=== PATIENT | female | born 1940 | race Caucasian/White ===

== ENCOUNTER → 2016-11-12 | Outpatient (CLI) | payer MEDICARE, BC ==
--- NOTE | 2016-11-13 13:06 | MM ---
Reason for exam: screening (asymptomatic). Last mammogram was performed 2 years and 7 months ago. History: Patient is postmenopausal. Benign excisional biopsy of the left breast. Physical Findings: A clinical breast exam by your physician is recommended on an annual basis and results should be correlated with mammographic findings. MG 3D Screening Mammo W/Cad Bilateral CC and MLO view(s) were taken. Prior study comparison: April 20, 2014, bilateral MG screening mammo w CAD. April 20, 2013, [facility] DIGITAL LEFT BREAST MAMMOGRAM w/CAD. The breast tissue is heterogeneously dense. This may lower the sensitivity of mammography. No significant changes when compared with prior studies. ASSESSMENT: Negative, BI-RAD 1 RECOMMENDATION: Routine screening mammogram of both breasts in 1 year.
== END | disposition home or self-care (01) ==
LOC: RADMAMWWP 06:57
PROVIDERS: ATTEND Family Medicine
DX: Z12.31 Encounter for screening mammogram for malignant neoplasm of breast (principal)
CPT/HCPCS: 77063; G0202

== ENCOUNTER → 2016-12-10 | Outpatient (CLI) | payer MEDICARE, BC ==
[2016-12-10 08:58] LABS: Basophils % (A) 1 %; CH 32.5; CHCM 32.3; Eosinophils # (A) 0.2 k/uL (0-0.7); Eosinophils % (A) 4 %; HCT 36.2 % (34.0-46.0); HDW 2.23; HGB 11.9 gm/dL (11.4-16.0); Luc # (Auto) 0.11; Luc % (Auto) 2; Lymphocytes # (A) 1.6 k/uL (1.0-4.8); Lymphocytes % (A) 35 %; MCH 33.3 pg (25.0-35.0); MCV 101.1 fL (80.0-100.0); Mean Platelet Volume 7.4; Monocytes # (A) 0.2 k/uL (0-1.0); Monocytes % (A) 4 %; Neutrophils # (A) 2.5 k/uL (1.3-7.7); Neutrophils % (A) 54 %; RBC 3.58 m/uL (3.80-5.40); RDW 12.7 % (11.5-15.5); WBC 4.6 k/uL (3.8-10.6); WBC (Perox) 4.93
[2016-12-10 09:14] LABS: Calcium 10.1 mg/dL (8.4-10.2); Magnesium 1.9 mg/dL (1.6-2.3); Phosphorus 3.9 mg/dL (2.5-4.5); Potassium 4.5 mmol/L (3.5-5.1); Uric Acid 5.9 mg/dL (3.7-7.4)
[2016-12-10 14:49] LABS: Urine Creatinine 31.8 mg/dL
== END | disposition home or self-care (01) ==
LOC: LABWHC1 08:30
PROVIDERS: ATTEND Family Medicine
DX: Z00.00 Encounter for general adult medical examination without abnormal findings (principal); N18.3 Chronic kidney disease, stage 3 (moderate)
CPT/HCPCS: 36415; 80048; 82043; 82272; 82306; 82570; 83735; 83970; 84100; 84550; 85025

== ENCOUNTER → 2017-08-14 | Outpatient (CLI) | payer MEDICARE, BC ==
[2017-08-14 10:18] LABS: Basophils % (A) 0 %; Eosinophils # (A) 0.1 k/uL (0-0.7); Eosinophils % (A) 4 %; HCT 34.8 % (34.0-46.0); HGB 11.6 gm/dL (11.4-16.0); Lymphocytes # (A) 1.2 k/uL (1.0-4.8); Lymphocytes % (A) 33 %; MCH 32.7 pg (25.0-35.0); MCHC 33.2 g/dL (31.0-37.0); MCV 98.5 fL (80.0-100.0); Mean Platelet Volume 7.1; Monocytes # (A) 0.2 k/uL (0-1.0); Monocytes % (A) 5 %; Neutrophils % (A) 55 %; Platelet Count 198 k/uL (150-450); RBC 3.54 m/uL (3.80-5.40); WBC 3.7 k/uL (3.8-10.6)
[2017-08-14 10:32] LABS: Albumin 4.3 g/dL (3.5-5.0); Calcium 10.2 mg/dL (8.4-10.2); Magnesium 1.9 mg/dL (1.6-2.3); Phosphorus 4.1 mg/dL (2.5-4.5); Potassium 4.8 mmol/L (3.5-5.1); Total Bilirubin 0.5 mg/dL (0.2-1.3); Total Protein 6.8 g/dL (6.3-8.2)
[2017-08-14 17:50] LABS: Parathyroid Hormone Intact 48.6 pg/mL (14.0-72.0)
[2017-08-14 17:57] LABS: Vitamin D 25 Hydroxy 35.6 ng/mL (30.0-100.0)
== END | disposition home or self-care (01) ==
LOC: LABWHC1 09:02
PROVIDERS: ATTEND Family Medicine
DX: Z00.00 Encounter for general adult medical examination without abnormal findings (principal); N18.3 Chronic kidney disease, stage 3 (moderate)
CPT/HCPCS: 36415; 80053; 80061; 82043; 82306; 82570; 83735; 83970; 84100; 84550; 85025

== ENCOUNTER → 2017-08-25 | Outpatient (CLI) | payer MEDICARE, BC ==
[2017-08-25 12:15] LABS: ALT 58 U/L (9-52); AST 25 U/L (14-36); Alkaline Phosphatase 77 U/L (38-126); GGT 113 U/L (12-43)
[2017-08-25 18:13] LABS: Hepatitis A Antibody IgM Non-Reactive (Non-Reactive); Hepatitis B Core IgM Non-Reactive (Non-Reactive)
== END | disposition home or self-care (01) ==
LOC: LABWHC1 11:03
PROVIDERS: ATTEND Family Medicine
DX: R79.89 Other specified abnormal findings of blood chemistry (principal)
CPT/HCPCS: 36415; 80074; 82977; 84075; 84450; 84460

== ENCOUNTER → 2017-11-11 | Outpatient (CLI) | payer MEDICARE, BC ==
[2017-11-11 11:35] LABS: Basophils % (A) 1 %; Eosinophils # (A) 0.1 k/uL (0-0.7); Eosinophils % (A) 1 %; HCT 36.5 % (34.0-46.0); HGB 12.1 gm/dL (11.4-16.0); Lymphocytes % (A) 23 %; MCH 32.5 pg (25.0-35.0); MCHC 33.3 g/dL (31.0-37.0); MCV 97.6 fL (80.0-100.0); Mean Platelet Volume 7.4; Monocytes # (A) 0.2 k/uL (0-1.0); Monocytes % (A) 5 %; Neutrophils # (A) 2.8 k/uL (1.3-7.7); Neutrophils % (A) 67 %; Platelet Count 184 k/uL (150-450); RBC 3.74 m/uL (3.80-5.40); RDW 12.4 % (11.5-15.5); WBC 4.2 k/uL (3.8-10.6)
[2017-11-11 11:48] LABS: Albumin 4.1 g/dL (3.5-5.0); Calcium 9.7 mg/dL (8.4-10.2); Phosphorus 3.5 mg/dL (2.5-4.5); Potassium 4.8 mmol/L (3.5-5.1); Total Bilirubin 0.6 mg/dL (0.2-1.3); Total Protein 6.8 g/dL (6.3-8.2); Uric Acid 6.1 mg/dL (3.7-7.4)
== END | disposition home or self-care (01) ==
LOC: LABWHC1 11:00
PROVIDERS: ATTEND Family Medicine
DX: N18.3 Chronic kidney disease, stage 3 (moderate) (principal); R74.8 Abnormal levels of other serum enzymes
CPT/HCPCS: 36415; 80053; 82043; 82570; 82977; 83735; 83970; 84100; 84550; 85025

== ENCOUNTER → 2017-11-24 | Outpatient (CLI) | payer MEDICARE, BC ==
--- NOTE | 2017-11-24 17:57 | US ---
EXAMINATION TYPE: US kidneys/renal and bladder DATE OF EXAM: 11/24/2017 COMPARISON: NONE CLINICAL HISTORY: 77-year-old female N18.3 CKD. TECHNIQUE: Multiple sonographic images of the kidneys and bladder are obtained. FINDINGS: Right Kidney: 10.5 x 3.4 x 4.3 cm Left Kidney: 9.7 x 3.0 x 3.9 cm No hydronephrosis seen on either side. Right Kidney: multiple cystic areas seen, largest = 2.6cm Left Kidney: multiple cystic areas seen, largest = 1.9cm Bladder: wnl Bilateral Jets seen: yes IMPRESSION: 1. No hydronephrosis. 2. Multiple bilateral simple cysts measuring up to 2.6 cm.
== END | disposition home or self-care (01) ==
LOC: RADUSWWP 14:28
PROVIDERS: ATTEND Family Medicine
DX: N28.1 Cyst of kidney, acquired (principal); N18.3 Chronic kidney disease, stage 3 (moderate)
CPT/HCPCS: 76770

== ENCOUNTER → 2018-03-11 | Outpatient (CLI) | payer MEDICARE, BC ==
[2018-03-11 08:45] LABS: Basophils % (A) 1 %; Eosinophils # (A) 0.1 k/uL (0-0.7); Eosinophils % (A) 3 %; HCT 31.5 % (34.0-46.0); HGB 10.6 gm/dL (11.4-16.0); Lymphocytes # (A) 1.2 k/uL (1.0-4.8); Lymphocytes % (A) 34 %; MCH 32.5 pg (25.0-35.0); MCHC 33.5 g/dL (31.0-37.0); Mean Platelet Volume 6.9; Monocytes # (A) 0.2 k/uL (0-1.0); Monocytes % (A) 4 %; Neutrophils # (A) 1.9 k/uL (1.3-7.7); Neutrophils % (A) 55 %; Platelet Count 195 k/uL (150-450); RBC 3.25 m/uL (3.80-5.40); RDW 12.5 % (11.5-15.5); WBC 3.4 k/uL (3.8-10.6)
[2018-03-11 08:46] LABS: Appearance,Urine Clear (Clear); Bilirubin,Urine Negative (Negative); Blood,Urine Negative (Negative); Color,Urine Light Yellow; Glucose,Urine (UA) Negative (Negative); Ketones,Urine Negative (Negative); Leukocyte Esterase,Urine Negative (Negative); Nitrite,Urine Negative (Negative); Protein,Urine Negative (Negative); Specific Gravity,Urine 1.005 (1.001-1.035); Urobilinogen,Urine <2.0 mg/dL (<2.0)
[2018-03-11 15:34] LABS: Parathyroid Hormone Intact 54.1 pg/mL (14.0-72.0)
[2018-03-11 16:21] LABS: Iron Saturation 34.02 (12.00-45.00)
[2018-03-11 16:30] LABS: Vitamin D 25 Hydroxy 35.2 ng/mL (30.0-100.0)
[2018-03-11 17:47] LABS: Albumin 4.2 g/dL (3.80-4.90); Albumin/Globulin Ratio 2.63 (1.20-2.10); Anion Gap 6.1 mmol/L (4.00-12.00); Calcium 9.1 mg/dL (8.7-10.3); Carbon Dioxide 22.9 mmol/L (21.6-31.8); Globulin 1.6 g/dL (1.6-3.3); LDL Cholesterol,Calculated 96.8 mg/dL (0.0-131.0); Magnesium 1.8 mg/dL (1.5-2.4); Phosphorus 3.9 mg/dL (2.4-5.1); Potassium 4.1 mmol/L (3.5-5.5); Total Bilirubin 0.6 mg/dL (0.3-1.2); Total Protein 5.8 g/dL (6.2-8.2); Uric Acid 5.8 mg/dL (2.9-7.7); VLDL Calculation 23.2 mg/dL (5.00-40.00)
[2018-03-11 17:58] LABS: Creatinine,Urine Random 48.2 mg/dL
[2018-03-11 18:15] LABS: Total Protein,Urine Random <4.0 mg/dL (0.0-13.5)
== END ==
LOC: LABWHC1 07:59
PROVIDERS: ATTEND Internal Medicine Nephrology
DX: E55.9 Vitamin D deficiency, unspecified (principal); N25.81 Secondary hyperparathyroidism of renal origin; D63.1 Anemia in chronic kidney disease; I12.9 Hypertensive chronic kidney disease with stage 1 through stage 4 chronic kidney disease, or unspecified chronic kidney disease; N18.3 Chronic kidney disease, stage 3 (moderate); R94.5 Abnormal results of liver function studies
CPT/HCPCS: 36415; 80053; 80061; 81003; 82306; 82570; 82728; 83540; 83550; 83735; 83970; 84100; 84156; 84550; 85025

== ENCOUNTER → 2018-06-22 | Outpatient (CLI) | payer MEDICARE, BC ==
--- NOTE | 2018-06-23 11:06 | ECHOF ---
Referral Reason:R07.89 atypical chest pain MEASUREMENTS -------- HEIGHT: 170.2 cm WEIGHT: 56.7 kg BP: IVSd: 1.2 cm (0.6 - 1.1) LVIDd: 3.3 cm (3.9 - 5.3) LVPWd: 1.0 cm (0.6 - 1.1) IVSs: 1.6 cm LVIDs: 2.1 cm LVPWs: 1.4 cm LAESV Index (A-L): 19.06 ml/m Ao Diam: 2.4 cm (2.0 - 3.7) AV Cusp: 1.5 cm (1.5 - 2.6) LA Diam: 2.5 cm (2.7 - 3.8) MV EXCURSION: 19.436 mm (> 18.000) MV EF SLOPE: 166 mm/s (70 - 150) EPSS: 0.6 cm MV E Lucas: 0.88 m/s MV DecT: 274 ms MV A Lucas: 0.95 m/s MV E/A Ratio: 0.92 AR PHT: 646 ms RAP: 5.00 mmHg RVSP: 27.10 mmHg FINDINGS -------- Sinus rhythm. This was a technically good study. The left ventricular size is normal. There is mild concentric left ventricular hypertrophy. Overa ll left ventricular systolic function is normal with, an EF between 55 - 60 %. The right ventricle is normal in size. Normal LA size by volume 22+/-6 ml/m2. The right atrial size is normal. There is mild aortic regurgitation. The mitral valve leaflets are mildly thickened. Mild mitral regurgitation is present. Mild tricuspid regurgitation present. The right ventricular systolic pressure, as measured by Doppl er, is 27.10mmHg. There is no pulmonic regurgitation present. The aortic root size is normal. Normal inferior vena cava with normal inspiratory collapse consistent with estimated right atrial pre ssure of 5 mmHg. There is no pericardial effusion. CONCLUSIONS -------- 1. Sinus rhythm. 2. This was a technically good study. 3. The left ventricular size is normal. 4. There is mild concentric left ventricular hypertrophy. 5. Overall left ventricular systolic function is normal with, an EF between 55 - 60 %. 6. The right ventricle is normal in size. 7. Normal LA size by volume 22+/-6 ml/m2. 8. The right atrial size is normal. 9. There is mild aortic regurgitation. 10. The mitral valve leaflets are mildly thickened. 11. Mild mitral regurgitation is present. 12. Mild tricuspid regurgitation present. 13. The right ventricular systolic pressure, as measured by Doppler, is 27.10mmHg. 14. There is no pulmonic regurgitation present. 15. The aortic root size is normal. 16. Normal inferior vena cava with normal inspiratory collapse consistent with estimated right atrial pressure of 5 mmHg. 17. There is no pericardial effusion. [place]: Rayne Smith RDCS
== END ==
LOC: RADECHMAIN 11:26
PROVIDERS: ATTEND Family Medicine
DX: R07.89 Other chest pain (principal); I10 Essential (primary) hypertension
CPT/HCPCS: 93306

== ENCOUNTER → 2018-07-09 | Outpatient (CLI) | payer MEDICARE, BC ==
[2018-07-09 09:07] LABS: Appearance,Urine Clear (Clear); Bilirubin,Urine Negative (Negative); Blood,Urine Negative (Negative); Color,Urine Light Yellow; Glucose,Urine (UA) Negative (Negative); Ketones,Urine Negative (Negative); Leukocyte Esterase,Urine Trace (Negative); Mucus,Urine Rare /hpf; Nitrite,Urine Negative (Negative); Protein,Urine Negative (Negative); Specific Gravity,Urine 1.006 (1.001-1.035); Squamous Epithelial Cell,Urine <1 /hpf (0-4); Urobilinogen,Urine <2.0 mg/dL (<2.0); WBC,Urine 2 /hpf (0-5)
[2018-07-09 09:17] LABS: Basophils % (A) 1 %; Eosinophils # (A) 0.1 k/uL (0-0.7); Eosinophils % (A) 2 %; HCT 31.5 % (34.0-46.0); HGB 10.5 gm/dL (11.4-16.0); Lymphocytes # (A) 1.1 k/uL (1.0-4.8); Lymphocytes % (A) 36 %; MCH 32.8 pg (25.0-35.0); MCHC 33.2 g/dL (31.0-37.0); MCV 98.7 fL (80.0-100.0); Mean Platelet Volume 6.7; Monocytes # (A) 0.2 k/uL (0-1.0); Monocytes % (A) 7 %; Neutrophils # (A) 1.6 k/uL (1.3-7.7); Neutrophils % (A) 52 %; Platelet Count 221 k/uL (150-450); RBC 3.19 m/uL (3.80-5.40); RDW 12.3 % (11.5-15.5); WBC 3.1 k/uL (3.8-10.6)
[2018-07-09 16:42] LABS: Iron Saturation 35.37 (12.00-45.00)
[2018-07-09 16:49] LABS: Vitamin D 25 Hydroxy 50.1 ng/mL (30.0-100.0)
[2018-07-09 16:53] LABS: Albumin 4.3 g/dL (3.80-4.90); Anion Gap 9.5 mmol/L (4.00-12.00); Calcium 9.6 mg/dL (8.7-10.3); Carbon Dioxide 21.5 mmol/L (21.6-31.8); Phosphorus 3.8 mg/dL (2.4-5.1); Potassium 4.3 mmol/L (3.5-5.5); Uric Acid 5.6 mg/dL (2.9-7.7)
[2018-07-09 17:38] LABS: Parathyroid Hormone Intact 49.5 pg/mL (14.0-72.0)
[2018-07-09 18:03] LABS: Creatinine,Urine Random 26.4 mg/dL
[2018-07-09 19:04] LABS: Total Protein,Urine Random <4.0 mg/dL (0.0-13.5)
== END | disposition home or self-care (01) ==
LOC: LABWHC1 08:18
PROVIDERS: ATTEND Internal Medicine Nephrology
DX: E55.9 Vitamin D deficiency, unspecified (principal); E21.3 Hyperparathyroidism, unspecified; M10.9 Gout, unspecified; N39.0 Urinary tract infection, site not specified; D63.1 Anemia in chronic kidney disease; N18.3 Chronic kidney disease, stage 3 (moderate); R80.9 Proteinuria, unspecified
CPT/HCPCS: 36415; 80048; 81001; 82040; 82306; 82570; 82728; 83540; 83550; 83735; 83970; 84100; 84156; 84550; 85025

== ENCOUNTER → 2018-10-16 | Outpatient (CLI) | payer MEDICARE, BC ==
--- NOTE | 2018-10-19 10:05 | MM ---
Reason for exam: screening (asymptomatic). Last mammogram was performed 1 year and 11 months ago. History: Patient is postmenopausal. Benign excisional biopsy of the left breast. Physical Findings: A clinical breast exam by your physician is recommended on an annual basis and results should be correlated with mammographic findings. MG 3D Screening Mammo W/Cad Bilateral CC and MLO view(s) were taken. XCCL view(s) were taken of the right breast. Prior study comparison: November 12, 2016, bilateral MG 3d screening mammo w/cad. April 20, 2014, bilateral MG screening mammo w CAD. There are scattered fibroglandular densities. There is no discrete abnormality. No significant changes when compared with prior studies. ASSESSMENT: Negative, BI-RAD 1 RECOMMENDATION: Routine screening mammogram of both breasts in 1 year.
== END | disposition home or self-care (01) ==
LOC: RADMAMWWP 11:07
PROVIDERS: ATTEND Family Medicine
DX: Z12.31 Encounter for screening mammogram for malignant neoplasm of breast (principal)
CPT/HCPCS: 77063; 77067

== ENCOUNTER → 2018-11-12 | Outpatient (CLI) | payer MEDICARE, BC ==
[2018-11-12 10:00] LABS: Basophils % (A) 1 %; Eosinophils # (A) 0.1 k/uL (0-0.7); Eosinophils % (A) 3 %; HCT 32.5 % (34.0-46.0); HGB 10.9 gm/dL (11.4-16.0); Lymphocytes # (A) 1.6 k/uL (1.0-4.8); Lymphocytes % (A) 38 %; MCH 32.7 pg (25.0-35.0); MCHC 33.7 g/dL (31.0-37.0); MCV 97.2 fL (80.0-100.0); Mean Platelet Volume 6.7; Monocytes # (A) 0.2 k/uL (0-1.0); Monocytes % (A) 5 %; Neutrophils # (A) 2.2 k/uL (1.3-7.7); Neutrophils % (A) 51 %; Platelet Count 225 k/uL (150-450); RBC 3.34 m/uL (3.80-5.40); RDW 12.4 % (11.5-15.5); WBC 4.3 k/uL (3.8-10.6)
[2018-11-12 10:14] LABS: Appearance,Urine Clear (Clear); Bacteria,Urine Rare /hpf; Bilirubin,Urine Negative (Negative); Blood,Urine Negative (Negative); Color,Urine Yellow; Glucose,Urine (UA) Negative (Negative); Ketones,Urine Negative (Negative); Leukocyte Esterase,Urine Moderate (Negative); Mucus,Urine Rare /hpf; Nitrite,Urine Negative (Negative); PH, Urine 5.5 (5.0-8.0); Protein,Urine Negative (Negative); RBC,Urine 1 /hpf (0-5); Specific Gravity,Urine 1.009 (1.001-1.035); Squamous Epithelial Cell,Urine 1 /hpf (0-4); Urobilinogen,Urine <2.0 mg/dL (<2.0); WBC,Urine 2 /hpf (0-5)
[2018-11-12 16:04] LABS: Iron Saturation 32.14 (12.00-45.00)
[2018-11-12 16:21] LABS: African American GFR (CKD) 38.3 (60.0-200.0); Albumin 4.2 g/dL (3.80-4.90); Anion Gap 10.9 mmol/L (4.00-12.00); BUN/Creat Ratio 18.67 Ratio (12.00-20.00); Calcium 9.7 mg/dL (8.7-10.3); Carbon Dioxide 22.1 mmol/L (21.6-31.8); Phosphorus 4.1 mg/dL (2.4-5.1); Potassium 4.2 mmol/L (3.5-5.5); Uric Acid 5.8 mg/dL (2.9-7.7)
[2018-11-12 18:54] LABS: Total Protein,Urine Random 7.4 mg/dL (0.0-13.5)
== END | disposition home or self-care (01) ==
LOC: LABWHC1 09:18
PROVIDERS: ATTEND Internal Medicine Nephrology
DX: N25.81 Secondary hyperparathyroidism of renal origin (principal); E55.9 Vitamin D deficiency, unspecified; M10.9 Gout, unspecified; N39.0 Urinary tract infection, site not specified; D63.1 Anemia in chronic kidney disease; N18.3 Chronic kidney disease, stage 3 (moderate)
CPT/HCPCS: 36415; 80048; 81001; 82040; 82306; 82570; 82728; 83540; 83550; 83735; 83970; 84100; 84156; 84550; 85025

== ENCOUNTER → 2019-02-05 | Outpatient (CLI) | payer MEDICARE, BC ==
[2019-02-05 12:47] LABS: Basophils % (A) 1 %; Eosinophils # (A) 0.1 k/uL (0-0.7); Eosinophils % (A) 2 %; HCT 30.2 % (34.0-46.0); Lymphocytes # (A) 1.2 k/uL (1.0-4.8); Lymphocytes % (A) 27 %; MCH 32.5 pg (25.0-35.0); MCHC 33.1 g/dL (31.0-37.0); Mean Platelet Volume 6.2; Monocytes # (A) 0.2 k/uL (0-1.0); Monocytes % (A) 5 %; Neutrophils # (A) 2.6 k/uL (1.3-7.7); Neutrophils % (A) 62 %; Platelet Count 197 k/uL (150-450); RBC 3.08 m/uL (3.80-5.40); RDW 12.6 % (11.5-15.5); WBC 4.2 k/uL (3.8-10.6)
[2019-02-05 18:51] LABS: Albumin 4.1 g/dL (3.80-4.90); Albumin/Globulin Ratio 2.16 (1.60-3.17); Anion Gap 8.9 mmol/L (4.00-12.00); BUN/Creat Ratio 16.5 Ratio (12.00-20.00); Calcium 9.4 mg/dL (8.7-10.3); Carbon Dioxide 25.1 mmol/L (21.6-31.8); Globulin 1.9 g/dL (1.6-3.3); Non-African American GFR(CKD) 23.3 (60.0-200.0); Potassium 4.4 mmol/L (3.5-5.5); Total Bilirubin 0.5 mg/dL (0.2-1.2)
== END ==
LOC: LABWHC1 12:05
PROVIDERS: ATTEND Family Medicine
DX: N18.3 Chronic kidney disease, stage 3 (moderate) (principal); R19.7 Diarrhea, unspecified
CPT/HCPCS: 36415; 80053; 82150; 83690; 84443; 85025; 87045; 87046; 87328; 87329

== ENCOUNTER → 2019-04-05 | Outpatient (CLI) | payer MEDICARE, BC ==
[2019-04-05 21:01] LABS: Gliadin AB IgA, Deaminated NEGATIVE (NEGATIVE); Gliadin AB IgA, Unit <0.2 U/mL; Gliadin AB IgG, Deaminated NEGATIVE (NEGATIVE)
== END | disposition home or self-care (01) ==
LOC: LABWHC1 12:35
PROVIDERS: ATTEND Internal Medicine Gastroenterology
DX: K52.9 Noninfective gastroenteritis and colitis, unspecified (principal)
CPT/HCPCS: 36415; 83516; 85652; 86140

== ENCOUNTER → 2019-07-14 | Outpatient (CLI) | payer MEDICARE, BC ==
[2019-07-14 11:43] LABS: Basophils % (A) 0 %; Eosinophils # (A) 0.1 k/uL (0-0.7); Eosinophils % (A) 3 %; HCT 30.6 % (34.0-46.0); HGB 10.2 gm/dL (11.4-16.0); Lymphocytes # (A) 0.9 k/uL (1.0-4.8); Lymphocytes % (A) 21 %; MCHC 33.2 g/dL (31.0-37.0); MCV 99.2 fL (80.0-100.0); Mean Platelet Volume 7.6; Monocytes # (A) 0.2 k/uL (0-1.0); Monocytes % (A) 5 %; Neutrophils # (A) 2.8 k/uL (1.3-7.7); Neutrophils % (A) 66 %; Platelet Count 182 k/uL (150-450); RBC 3.08 m/uL (3.80-5.40); RDW 12.3 % (11.5-15.5); WBC 4.2 k/uL (3.8-10.6)
[2019-07-14 11:45] LABS: Appearance,Urine Cloudy (Clear); Bacteria,Urine Rare /hpf; Bilirubin,Urine Negative (Negative); Blood,Urine Negative (Negative); Budding Yeast,Urine Rare /hpf; Color,Urine Light Yellow; Glucose,Urine (UA) Negative (Negative); Hyaline Casts,Urine 1 /lpf (0-2); Ketones,Urine Negative (Negative); Leukocyte Esterase,Urine Large (Negative); Mucus,Urine Rare /hpf; Nitrite,Urine Negative (Negative); Protein,Urine Negative (Negative); RBC,Urine 2 /hpf (0-5); Specific Gravity,Urine 1.011 (1.001-1.035); Squamous Epithelial Cell,Urine 3 /hpf (0-4); Urobilinogen,Urine <2.0 mg/dL (<2.0); WBC,Urine 3 /hpf (0-5)
[2019-07-14 17:04] LABS: Creatinine,Urine Random 78.2 mg/dL; Total Protein,Urine Random 9.5 mg/dL (0.0-13.5)
[2019-07-14 18:54] LABS: % Iron Saturation 21.53 (12.00-45.00); African American GFR (CKD) 32.9 (60.0-200.0); Albumin 4.1 g/dL (3.80-4.90); Anion Gap 10.8 mmol/L (4.00-12.00); BUN/Creat Ratio 15.88 Ratio (12.00-20.00); Calcium 9.4 mg/dL (8.7-10.3); Carbon Dioxide 23.2 mmol/L (21.6-31.8); Magnesium 1.8 mg/dL (1.5-2.4); Non-African American GFR(CKD) 28.4 (60.0-200.0); Phosphorus 3.8 mg/dL (2.4-5.1); Potassium 4.1 mmol/L (3.5-5.5); Uric Acid 5.5 mg/dL (2.9-7.7)
[2019-07-14 19:03] LABS: Ferritin 353.8 ng/mL (10.0-291.0)
== END | disposition home or self-care (01) ==
LOC: LABWHC1 10:48
PROVIDERS: ATTEND Internal Medicine Nephrology
DX: N18.3 Chronic kidney disease, stage 3 (moderate) (principal); E55.9 Vitamin D deficiency, unspecified; N25.81 Secondary hyperparathyroidism of renal origin; M10.9 Gout, unspecified; N39.0 Urinary tract infection, site not specified
CPT/HCPCS: 36415; 80048; 81001; 82040; 82306; 82570; 82728; 83540; 83550; 83735; 83970; 84100; 84156; 84550; 85025

== ENCOUNTER → 2019-08-19 | Outpatient (CLI) | payer MEDICARE, BC ==
--- NOTE | 2019-08-19 15:37 | US ---
EXAMINATION TYPE: US kidneys/renal and bladder DATE OF EXAM: 08/19/2019 COMPARISON: NONE CLINICAL HISTORY: N18.4 stage 4 kidney failure. CKD stage 4 EXAM MEASUREMENTS: Right Kidney: 9.9 x 3.5 cm Left Kidney: 9.3 x 4.7 x 3.6 cm Right Kidney: multiple cysts seen largest 2.1 x 1.9 x 1.9 cm. Left Kidney: multiple cysts seen largest 2.5 x 2.2 x 2.2 cm. Bladder: Anechoic Bilateral Jets seen: Yes IMPRESSION: Bilateral renal cysts
== END | disposition home or self-care (01) ==
LOC: RADUSWWP 13:25
PROVIDERS: ATTEND Internal Medicine Geriatric Medicine
DX: N28.1 Cyst of kidney, acquired (principal); N18.4 Chronic kidney disease, stage 4 (severe)
CPT/HCPCS: 76770

== ENCOUNTER → 2019-10-29 | Outpatient (CLI) | payer MEDICARE, BC ==
[2019-10-29 11:08] LABS: Appearance,Urine Clear (Clear); Bacteria,Urine Rare /hpf; Bilirubin,Urine Negative (Negative); Blood,Urine Negative (Negative); Color,Urine Yellow; Glucose,Urine (UA) Negative (Negative); Ketones,Urine Negative (Negative); Leukocyte Esterase,Urine Trace (Negative); Mucus,Urine Rare /hpf; Nitrite,Urine Negative (Negative); PH, Urine 5.5 (5.0-8.0); Protein,Urine Negative (Negative); RBC,Urine <1 /hpf (0-5); Specific Gravity,Urine 1.012 (1.001-1.035); Squamous Epithelial Cell,Urine <1 /hpf (0-4); Urobilinogen,Urine <2.0 mg/dL (<2.0); WBC,Urine 1 /hpf (0-5)
[2019-10-29 11:21] LABS: Basophils % (A) 0 %; Eosinophils # (A) 0.1 k/uL (0-0.7); Eosinophils % (A) 2 %; HCT 31.4 % (34.0-46.0); HGB 10.1 gm/dL (11.4-16.0); Lymphocytes % (A) 21 %; MCH 31.7 pg (25.0-35.0); MCHC 32.2 g/dL (31.0-37.0); MCV 98.3 fL (80.0-100.0); Mean Platelet Volume 7.6; Monocytes # (A) 0.2 k/uL (0-1.0); Monocytes % (A) 5 %; Neutrophils # (A) 3.4 k/uL (1.3-7.7); Neutrophils % (A) 70 %; Platelet Count 214 k/uL (150-450); RBC 3.19 m/uL (3.80-5.40); WBC 4.8 k/uL (3.8-10.6)
[2019-10-29 11:23] LABS: Protein/Creatinine Ratio,Urine 0.11
[2019-10-29 17:29] LABS: % Iron Saturation 23.65 (12.00-45.00); African American GFR (CKD) 28.6 (60.0-200.0); Albumin 4.2 g/dL (3.80-4.90); Anion Gap 8.7 mmol/L (4.00-12.00); BUN/Creat Ratio 17.89 Ratio (12.00-20.00); Calcium 9.8 mg/dL (8.7-10.3); Carbon Dioxide 23.3 mmol/L (21.6-31.8); Magnesium 1.8 mg/dL (1.5-2.4); Non-African American GFR(CKD) 24.6 (60.0-200.0); Phosphorus 4.1 mg/dL (2.4-5.1); Potassium 4.3 mmol/L (3.5-5.5); Uric Acid 6.4 mg/dL (2.9-7.7)
[2019-10-29 17:37] LABS: Ferritin 291.7 ng/mL (10.0-291.0)
== END | disposition home or self-care (01) ==
LOC: LABWHC1 09:17
PROVIDERS: ATTEND Internal Medicine Nephrology
DX: N39.0 Urinary tract infection, site not specified (principal); E55.9 Vitamin D deficiency, unspecified; N25.81 Secondary hyperparathyroidism of renal origin; M10.9 Gout, unspecified; D63.1 Anemia in chronic kidney disease; N18.3 Chronic kidney disease, stage 3 (moderate); R80.9 Proteinuria, unspecified
CPT/HCPCS: 36415; 80048; 81001; 82040; 82306; 82570; 82728; 83540; 83550; 83735; 83970; 84100; 84156; 84550; 85025

== ENCOUNTER → 2019-12-20 | Outpatient (CLI) | payer MEDICARE, BC ==
[2019-12-20 14:15] LABS: Basophils % (A) 1 %; Eosinophils # (A) 0.1 k/uL (0-0.7); Eosinophils % (A) 2 %; HCT 32.2 % (34.0-46.0); HGB 10.7 gm/dL (11.4-16.0); Lymphocytes # (A) 1.1 k/uL (1.0-4.8); Lymphocytes % (A) 23 %; MCH 33.3 pg (25.0-35.0); MCHC 33.2 g/dL (31.0-37.0); MCV 100.4 fL (80.0-100.0); Mean Platelet Volume 6.9; Monocytes # (A) 0.3 k/uL (0-1.0); Monocytes % (A) 5 %; Neutrophils # (A) 3.2 k/uL (1.3-7.7); Neutrophils % (A) 67 %; Platelet Count 225 k/uL (150-450); RBC 3.21 m/uL (3.80-5.40); RDW 12.1 % (11.5-15.5); WBC 4.8 k/uL (3.8-10.6)
[2019-12-20 21:16] LABS: % Iron Saturation 25.44 (12.00-45.00); African American GFR (CKD) 28.6 (60.0-200.0); Anion Gap 8.8 mmol/L (4.00-12.00); BUN/Creat Ratio 15.26 Ratio (12.00-20.00); Calcium 9.5 mg/dL (8.7-10.3); Carbon Dioxide 24.2 mmol/L (21.6-31.8); Non-African American GFR(CKD) 24.6 (60.0-200.0); Phosphorus 3.5 mg/dL (2.4-5.1); Potassium 4.9 mmol/L (3.5-5.5)
== END | disposition home or self-care (01) ==
LOC: LABWHC1 12:56
PROVIDERS: ATTEND Internal Medicine Nephrology
DX: N18.30 Chronic kidney disease, stage 3 unspecified (principal); D63.1 Anemia in chronic kidney disease
CPT/HCPCS: 36415; 80048; 82728; 83540; 83550; 84100; 85025

== ENCOUNTER → 2020-05-02 | Outpatient (CLI) | payer MEDICARE, BC ==
[2020-05-02 14:30] LABS: Appearance,Urine Clear (Clear); Bilirubin,Urine Negative (Negative); Blood,Urine Negative (Negative); Color,Urine Light Yellow; Glucose,Urine (UA) Negative (Negative); Ketones,Urine Negative (Negative); Leukocyte Esterase,Urine Negative (Negative); Nitrite,Urine Negative (Negative); Protein,Urine Negative (Negative); Specific Gravity,Urine 1.008 (1.001-1.035); Urobilinogen,Urine <2.0 mg/dL (<2.0)
[2020-05-02 14:49] LABS: Creatinine,Urine Random 59.5 mg/dL; Protein/Creatinine Ratio,Urine 0.235
[2020-05-02 19:16] LABS: Basophils # (A) 0.03 X 10*3/uL (0.00-0.10); Basophils % (A) 0.5 %; Eosinophils # (A) 0.07 X 10*3/uL (0.04-0.35); Eosinophils % (A) 1.2 %; HCT 31.7 % (37.2-46.3); HGB 10.6 g/dL (12.0-15.0); Lymphocytes # (A) 1.29 X 10*3/uL (0.90-5.00); Lymphocytes % (A) 22.8 %; MCH 33.2 pg (27.0-32.0); MCHC 33.4 g/dL (32.0-37.0); MCV 99.4 fL (80.0-97.0); Mean Platelet Volume 10.5 fL (9.5-12.2); Monocytes # (A) 0.35 X 10*3/uL (0.20-1.00); Monocytes % (A) 6.2 %; Neutrophils # (A) 3.91 X 10*3/uL (1.80-7.70); Neutrophils % (A) 68.9 %; Platelet Count 211 X 10*3/uL (140-440); RBC 3.19 X 10*6/uL (4.10-5.20); RDW 12.6 % (11.5-14.5); WBC 5.67 X 10*3/uL (4.50-10.00)
[2020-05-02 20:47] LABS: % Iron Saturation 25.42 (12.00-45.00); African American GFR (CKD) 22.7 (60.0-200.0); Albumin 4.5 g/dL (3.80-4.90); Anion Gap 9.4 mmol/L (4.00-12.00); BUN/Creat Ratio 16.96 Ratio (12.00-20.00); Calcium 9.5 mg/dL (8.7-10.3); Carbon Dioxide 26.6 mmol/L (21.6-31.8); Magnesium 2.2 mg/dL (1.5-2.4); Non-African American GFR(CKD) 19.6 (60.0-200.0); Phosphorus 3.4 mg/dL (2.4-5.1); Potassium 4.5 mmol/L (3.5-5.5); Uric Acid 5.7 mg/dL (2.9-7.7)
[2020-05-02 21:53] LABS: Ferritin 343.5 ng/mL (10.0-291.0)
== END | disposition home or self-care (01) ==
LOC: LABWHC1 13:45
PROVIDERS: ATTEND Internal Medicine Nephrology
DX: E55.9 Vitamin D deficiency, unspecified (principal); N25.81 Secondary hyperparathyroidism of renal origin; M10.9 Gout, unspecified; N39.0 Urinary tract infection, site not specified; N18.4 Chronic kidney disease, stage 4 (severe); D63.1 Anemia in chronic kidney disease; R80.9 Proteinuria, unspecified
CPT/HCPCS: 36415; 80048; 81003; 82040; 82306; 82570; 82728; 83540; 83550; 83735; 83970; 84100; 84156; 84550; 85025

== ENCOUNTER → 2020-05-24 | Outpatient (CLI) | payer MEDICARE, BC ==
[2020-05-25 02:00] LABS: African American GFR (CKD) 22.7 (60.0-200.0); Anion Gap 12.4 mmol/L (4.00-12.00); BUN/Creat Ratio 14.35 Ratio (12.00-20.00); Calcium 10.3 mg/dL (8.7-10.3); Carbon Dioxide 21.6 mmol/L (21.6-31.8); Non-African American GFR(CKD) 19.6 (60.0-200.0); Potassium 4.5 mmol/L (3.5-5.5)
== END | disposition home or self-care (01) ==
LOC: LABWHC1 12:09
PROVIDERS: ATTEND Nurse Practitioner Family
DX: N18.4 Chronic kidney disease, stage 4 (severe) (principal)
CPT/HCPCS: 36415; 80048

== ENCOUNTER → 2020-08-17 | Outpatient (CLI) | payer MEDICARE, BC ==
[2020-08-17 11:37] LABS: Creatinine,Urine Random 29.4 mg/dL; Protein/Creatinine Ratio,Urine 0.476
[2020-08-17 11:40] LABS: Appearance,Urine Clear (Clear); Bilirubin,Urine Negative (Negative); Blood,Urine Negative (Negative); Color,Urine Light Yellow; Glucose,Urine (UA) Negative (Negative); Ketones,Urine Negative (Negative); Leukocyte Esterase,Urine Negative (Negative); Nitrite,Urine Negative (Negative); PH, Urine 6.5 (5.0-8.0); Protein,Urine Negative (Negative); Specific Gravity,Urine 1.005 (1.001-1.035); Urobilinogen,Urine <2.0 mg/dL (<2.0)
[2020-08-17 15:57] LABS: Basophils # (A) 0.03 X 10*3/uL (0.00-0.10); Basophils % (A) 0.6 %; Eosinophils # (A) 0.17 X 10*3/uL (0.04-0.35); Eosinophils % (A) 3.4 %; HCT 30.4 % (37.2-46.3); HGB 9.9 g/dL (12.0-15.0); Lymphocytes # (A) 1.41 X 10*3/uL (0.90-5.00); Lymphocytes % (A) 28.2 %; MCHC 32.6 g/dL (32.0-37.0); MCV 98.4 fL (80.0-97.0); Mean Platelet Volume 10.1 fL (9.5-12.2); Monocytes # (A) 0.44 X 10*3/uL (0.20-1.00); Monocytes % (A) 8.8 %; Neutrophils # (A) 2.93 X 10*3/uL (1.80-7.70); Neutrophils % (A) 58.6 %; Platelet Count 188 X 10*3/uL (140-440); RBC 3.09 X 10*6/uL (4.10-5.20); RDW 12.1 % (11.5-14.5)
[2020-08-17 18:35] LABS: % Iron Saturation 28.97 (12.00-45.00); African American GFR (CKD) 26.8 (60.0-200.0); Anion Gap 8.9 mmol/L (4.00-12.00); Calcium 10.2 mg/dL (8.7-10.3); Carbon Dioxide 22.1 mmol/L (21.6-31.8); Magnesium 1.9 mg/dL (1.5-2.4); Non-African American GFR(CKD) 23.2 (60.0-200.0); Phosphorus 4.2 mg/dL (2.4-5.1); Potassium 4.4 mmol/L (3.5-5.5); Uric Acid 5.1 mg/dL (2.9-7.7)
[2020-08-17 18:42] LABS: Ferritin 288.2 ng/mL (10.0-291.0)
== END | disposition home or self-care (01) ==
LOC: LABWHC1 09:29
PROVIDERS: ATTEND Nurse Practitioner Family
DX: N18.4 Chronic kidney disease, stage 4 (severe) (principal); E55.9 Vitamin D deficiency, unspecified; E21.3 Hyperparathyroidism, unspecified; M10.9 Gout, unspecified; N39.0 Urinary tract infection, site not specified; D64.9 Anemia, unspecified
CPT/HCPCS: 36415; 80048; 81003; 82040; 82306; 82570; 82728; 83540; 83550; 83735; 83970; 84100; 84156; 84550; 85025

== ENCOUNTER → 2020-10-04 | Outpatient (CLI) | payer MEDICARE, BC ==
[2020-10-04 20:04] LABS: Basophils # (A) 0.02 X 10*3/uL (0.00-0.10); Basophils % (A) 0.3 %; Eosinophils % (A) 3.4 %; HCT 31.5 % (37.2-46.3); HGB 10.2 g/dL (12.0-15.0); Lymphocytes # (A) 1.07 X 10*3/uL (0.90-5.00); Lymphocytes % (A) 18.4 %; MCH 32.1 pg (27.0-32.0); MCHC 32.4 g/dL (32.0-37.0); MCV 99.1 fL (80.0-97.0); Mean Platelet Volume 10.2 fL (9.5-12.2); Monocytes # (A) 0.45 X 10*3/uL (0.20-1.00); Monocytes % (A) 7.7 %; Neutrophils # (A) 4.07 X 10*3/uL (1.80-7.70); Neutrophils % (A) 69.9 %; Platelet Count 192 X 10*3/uL (140-440); RBC 3.18 X 10*6/uL (4.10-5.20); RDW 12.6 % (11.5-14.5); WBC 5.83 X 10*3/uL (4.50-10.00)
== END | disposition home or self-care (01) ==
LOC: LABWHC1 11:36
PROVIDERS: ATTEND Nurse Practitioner Family
DX: D64.9 Anemia, unspecified (principal)
CPT/HCPCS: 36415; 85025

== ENCOUNTER → 2020-12-01 | Outpatient (CLI) | payer MEDICARE, BC ==
[2020-12-01 14:19] LABS: Appearance,Urine Clear (Clear); Bacteria,Urine Rare /hpf; Bilirubin,Urine Negative (Negative); Blood,Urine Negative (Negative); Color,Urine Yellow; Glucose,Urine (UA) Negative (Negative); Ketones,Urine Negative (Negative); Leukocyte Esterase,Urine Large (Negative); Mucus,Urine Rare /hpf; Nitrite,Urine Negative (Negative); Protein,Urine Negative (Negative); RBC,Urine 1 /hpf (0-5); Specific Gravity,Urine 1.012 (1.001-1.035); Squamous Epithelial Cell,Urine 1 /hpf (0-4); Urobilinogen,Urine <2.0 mg/dL (<2.0); WBC,Urine 2 /hpf (0-5)
[2020-12-01 19:08] LABS: Basophils # (A) 0.04 X 10*3/uL (0.00-0.10); Basophils % (A) 0.7 %; Eosinophils % (A) 1.8 %; HCT 31.1 % (37.2-46.3); HGB 10.2 g/dL (12.0-15.0); Lymphocytes % (A) 23.3 %; MCHC 32.8 g/dL (32.0-37.0); MCV 97.5 fL (80.0-97.0); Mean Platelet Volume 9.9 fL (9.5-12.2); Monocytes # (A) 0.41 X 10*3/uL (0.20-1.00); Monocytes % (A) 7.3 %; Neutrophils # (A) 3.73 X 10*3/uL (1.80-7.70); Neutrophils % (A) 66.7 %; Platelet Count 209 X 10*3/uL (140-440); RBC 3.19 X 10*6/uL (4.10-5.20); RDW 12.7 % (11.5-14.5); WBC 5.59 X 10*3/uL (4.50-10.00)
[2020-12-01 22:46] LABS: % Iron Saturation 30.2 (12.00-45.00); African American GFR (CKD) 25.1 (60.0-200.0); Albumin 4.5 g/dL (3.80-4.90); Anion Gap 9.8 mmol/L (4.00-12.00); BUN/Creat Ratio 14.76 Ratio (12.00-20.00); Calcium 9.4 mg/dL (8.7-10.3); Carbon Dioxide 22.2 mmol/L (21.6-31.8); Magnesium 2.1 mg/dL (1.5-2.4); Non-African American GFR(CKD) 21.7 (60.0-200.0); Phosphorus 3.4 mg/dL (2.4-5.1); Uric Acid 5.2 mg/dL (2.9-7.7)
[2020-12-02 00:19] LABS: Ferritin 390.3 ng/mL (10.0-291.0)
[2020-12-02 00:30] LABS: Urine Creatinine 102.9 mg/dL
== END | disposition home or self-care (01) ==
LOC: LABWHC1 11:42
PROVIDERS: ATTEND Nurse Practitioner Family
DX: D64.9 Anemia, unspecified (principal); N18.4 Chronic kidney disease, stage 4 (severe); E55.9 Vitamin D deficiency, unspecified; N25.81 Secondary hyperparathyroidism of renal origin; M10.9 Gout, unspecified; N39.0 Urinary tract infection, site not specified; R80.9 Proteinuria, unspecified
CPT/HCPCS: 36415; 80048; 81001; 82040; 82043; 82306; 82570; 82728; 83540; 83550; 83735; 83970; 84100; 84550; 85025

== ENCOUNTER → 2021-03-20 | Outpatient (CLI) | payer MEDICARE, BC ==
--- NOTE | 2021-03-20 16:06 | XR ---
EXAMINATION TYPE: XR chest 2V DATE OF EXAM: 03/20/2021 COMPARISON: None HISTORY: 80-year-old female acute cough, R05.1 TECHNIQUE: Frontal and lateral views FINDINGS: Heart normal size. Aorta and artery vasculature within normal limits. Right apical calcification and pleural parenchymal thickening, right greater than left. Partial silhouetting along the left heart ma rgin. Hyperinflation. Strandy atelectasis in the lower lungs. No pleural effusion. IMPRESSION: 1. COPD. Some silhouetting of the left heart margin could represent some adjacent inferior lingular a telectasis versus early infiltrate/pneumonia. Clinically correlate. 2. Biapical, right greater than left, pleuroparenchymal opacities, probably scarring. 8-10 week radio graphic follow-up recommended to reassess.
== END | disposition home or self-care (01) ==
LOC: RADXRMAIN 15:35
PROVIDERS: ATTEND Nurse Practitioner Gerontology
DX: J44.9 Chronic obstructive pulmonary disease, unspecified (principal); R05.1 Acute cough
CPT/HCPCS: 71046

== ENCOUNTER → 2021-03-29 | Outpatient (CLI) | payer MEDICARE, BC ==
--- NOTE | 2021-03-29 17:40 | CT ---
EXAMINATION TYPE: CT chest wo con CT DLP: 371 mGycm, Automated exposure control for dose reduction was used. DATE OF EXAM: 03/29/2021 4:58 PM COMPARISON: Chest radiograph from 03/20/2021, renal ultrasound 11/24/2017 CLINICAL INDICATION:Female, 80 years old with history of J47.9 Bronchiectasis, Bronchiectasis. Pt sta donna she had pneumonia several months ago and this is a follow-up TECHNIQUE: Multiple axial images were obtained through the chest without IV contrast. Lack of IV or o ral contrast limits evaluation of solid and hollow organ viscera. FINDINGS: LUNGS/ PLEURA: Lobular emphysema changes are seen throughout the lungs. There is scattered pleural ca lcification present within the lateral aspects of the upper lobes. Streaky subsegmental atelectasis/s carring is seen within the upper lobes and middle lobe. Bilateral Bochdalek hernias containing fat. G roundglass opacity within the right upper lobe in 11 mm best appreciated on series 7 image 24. There is also right lower lobe nodularity on series 4 image 35. AIRWAY: Patent and unremarkable. HEART: Size within normal limits. MEDIASTINUM: No gross evidence of adenopathy. VASCULATURE: No aortic aneurysm. Scattered atherosclerotic calcifications are seen in the arterial v asculature. MUSCULOSKELETAL: No acute osseous abnormalities with the level degenerative disc disease changes thro ughout the spine. Is mild T12 superior endplate compression noted. SOFT TISSUES/LYMPH NODES: Unremarkable. LOWER NECK: No significant findings. UPPER ABDOMEN: Left renal hypodensities likely representing cysts however lack of IV contrast limits evaluation. This one of the cyst was seen on prior ultrasound 11/24/2017. Additionally there is a left nonobstructing 6 mm calculus. Small splenule is present. IMPRESSION: 1. No evidence of focal airspace consolidation, pneumothorax or pleural effusion. 2. Streaky subsegmental atelectasis/scarring changes at the upper lobes and middle lobe which may rep resent sequela of prior infection. 3. Groundglass opacity within the right upper lobe measuring 11 mm and nodular like area within the r ight lower lobe . Follow-up in 6-12 months is recommended to ensure stability. 4. Pleural calcifications of the lateral aspect of the upper lobes may represent exposure to asbestos . Patient is advised. 5. Left renal cyst cysts some of which are new, consider follow-up ultrasound of the kidneys ensure s tability. 6. COPD changes.
== END | disposition home or self-care (01) ==
LOC: RADCTMAIN 16:29
PROVIDERS: ATTEND Internal Medicine Geriatric Medicine
DX: J47.9 Bronchiectasis, uncomplicated (principal)
CPT/HCPCS: 71250

== ENCOUNTER → 2021-05-01 | Outpatient (CLI) | payer MEDICARE, BC ==
[2021-05-01 12:01] LABS: Creatinine,Urine Random 45.5 mg/dL; Protein/Creatinine Ratio,Urine 0.374
[2021-05-01 12:11] LABS: Appearance,Urine Clear (Clear); Bilirubin,Urine Negative (Negative); Blood,Urine Negative (Negative); Color,Urine Light Yellow; Glucose,Urine (UA) Negative (Negative); Ketones,Urine Negative (Negative); Leukocyte Esterase,Urine Moderate (Negative); Mucus,Urine Rare /hpf; Nitrite,Urine Negative (Negative); PH, Urine 5.5 (5.0-8.0); Protein,Urine Negative (Negative); RBC,Urine <1 /hpf (0-5); Specific Gravity,Urine 1.007 (1.001-1.035); Squamous Epithelial Cell,Urine <1 /hpf (0-4); Urobilinogen,Urine <2.0 mg/dL (<2.0); WBC,Urine 6 /hpf (0-5)
[2021-05-01 14:57] LABS: Basophils # (A) 0.03 X 10*3/uL (0.00-0.10); Basophils % (A) 0.3 %; Eosinophils # (A) 0.11 X 10*3/uL (0.04-0.35); Eosinophils % (A) 1.1 %; HCT 31.4 % (37.2-46.3); HGB 10.1 g/dL (12.0-15.0); Immature Grans, Automated 0.4 %; Lymphocytes # (A) 0.97 X 10*3/uL (0.90-5.00); Lymphocytes % (A) 9.4 %; MCHC 32.2 g/dL (32.0-37.0); MCV 99.4 fL (80.0-97.0); Mean Platelet Volume 9.9 fL (9.5-12.2); Monocytes # (A) 0.46 X 10*3/uL (0.20-1.00); Monocytes % (A) 4.5 %; NRBC Per 100 WBC 0 /100 WBCS (0.0-0.0); Neutrophils # (A) 8.71 X 10*3/uL (1.80-7.70); Neutrophils % (A) 84.3 %; Platelet Count 218 X 10*3/uL (140-440); RBC 3.16 X 10*6/uL (4.10-5.20); RDW 14.3 % (11.5-14.5); WBC 10.32 X 10*3/uL (4.50-10.00)
[2021-05-01 15:05] LABS: % Iron Saturation 25.8 (12.00-45.00); African American GFR (CKD) 20.1 (60.0-200.0); Anion Gap 14.6 mmol/L (10.00-18.00); BUN/Creat Ratio 17.04 Ratio (12.00-20.00); Blood Urea Nitrogen 43.1 mg/dL (9.0-27.0); Carbon Dioxide 20.6 mmol/L (20.0-27.5); Magnesium 2.2 mg/dL (1.5-2.4); Non-African American GFR(CKD) 17.3 (60.0-200.0); Phosphorus 3.8 mg/dL (2.4-5.1); Potassium 4.4 mmol/L (3.5-5.5)
[2021-05-01 16:44] LABS: Albumin 4.1 g/dL (3.8-4.9)
== END | disposition home or self-care (01) ==
LOC: LABWHC1 10:41
PROVIDERS: ATTEND Internal Medicine Nephrology
DX: D63.1 Anemia in chronic kidney disease (principal); N18.4 Chronic kidney disease, stage 4 (severe); E55.9 Vitamin D deficiency, unspecified; N25.81 Secondary hyperparathyroidism of renal origin; M10.9 Gout, unspecified; N39.0 Urinary tract infection, site not specified; R80.9 Proteinuria, unspecified
CPT/HCPCS: 36415; 80048; 81001; 82040; 82306; 82570; 82728; 83540; 83550; 83735; 83970; 84100; 84156; 84550; 85025

== ENCOUNTER → 2021-06-14 | Outpatient (CLI) | payer MEDICARE, BC ==
[2021-06-14 14:17] LABS: Basophils % (A) 0 %; Eosinophils # (A) 0.1 k/uL (0-0.7); Eosinophils % (A) 2 %; HCT 29.4 % (34.0-46.0); HGB 9.6 gm/dL (11.4-16.0); Lymphocytes # (A) 1.1 k/uL (1.0-4.8); Lymphocytes % (A) 18 %; MCH 32.8 pg (25.0-35.0); MCHC 32.6 g/dL (31.0-37.0); MCV 100.6 fL (80.0-100.0); Mean Platelet Volume 7.6; Monocytes # (A) 0.3 k/uL (0-1.0); Monocytes % (A) 5 %; Neutrophils # (A) 4.5 k/uL (1.3-7.7); Neutrophils % (A) 73 %; Platelet Count 215 k/uL (150-450); RBC 2.93 m/uL (3.80-5.40); RDW 13.1 % (11.5-15.5); WBC 6.1 k/uL (3.8-10.6)
[2021-06-14 14:30] LABS: Creatinine,Urine Random 135.1 mg/dL; Protein/Creatinine Ratio,Urine 0.207
[2021-06-14 14:32] LABS: Total Eosinophil Count 116 #EOS/uL (150-300)
[2021-06-14 19:17] LABS: % Iron Saturation 17.53 (12.00-45.00); African American GFR (CKD) 17.7 (60.0-200.0); Anion Gap 14.9 mmol/L (10.00-18.00); BUN/Creat Ratio 13.75 Ratio (12.00-20.00); Blood Urea Nitrogen 38.5 mg/dL (9.0-27.0); Calcium 10.5 mg/dL (8.7-10.3); Carbon Dioxide 19.1 mmol/L (20.0-27.5); Magnesium 2.3 mg/dL (1.5-2.4); Non-African American GFR(CKD) 15.3 (60.0-200.0); Phosphorus 4.4 mg/dL (2.4-5.1); Potassium 3.8 mmol/L (3.5-5.5); Uric Acid 5.5 mg/dL (2.9-7.7)
[2021-06-14 19:31] LABS: Albumin 4.3 g/dL (3.8-4.9)
[2021-06-14 19:52] LABS: Appearance,Urine Clear (Clear); Bacteria,Urine None Seen /HPF (None Seen); Bilirubin,Urine Negative (Negative); Blood,Urine Negative (Negative); Color,Urine Yellow (Yellow); Ketones,Urine Negative (Negative); Nitrite,Urine Negative (Negative); Specific Gravity,Urine 1.016 (1.001-1.030); Urobilinogen,Urine 0.2 (0.2,1.0)
[2021-06-14 22:34] LABS: Alternaria alternata IgE <0.10 kU/L; Aspergillus fumagatus IgE <0.10 kU/L; Birch IgE <0.10 kU/L; Cat Epith & Dander IgE <0.10 kU/L; Cladosporian herbarum IgE <0.10 kU/L; Cockroach IgE <0.10 kU/L; Dermato. farinae IgE <0.10 kU/L; Dog Dander IgE <0.10 kU/L; Elm IgE <0.10 kU/L; Oak IgE <0.10 kU/L; Ragweed,Common IgE <0.10 kU/L; Red Top (Bentgrass) IgE <0.10 kU/L
[2021-06-15 11:35] LABS: Free Kappa Lt Chain Qnt, Serum 4.06 mg/dL (0.33-1.94); Free Lambda Lt Chain Qnt, Seru 2.78 mg/dL (0.57-2.63)
[2021-06-15 13:50] LABS: C-ANCA <1:20 Titer (<1:20)
[2021-06-26 11:46] LABS: Maple (Box Elder) IgE <0.10 kU/L
== END | disposition home or self-care (01) ==
LOC: LABWHC1 12:47
PROVIDERS: ATTEND Nurse Practitioner Family
DX: J45.909 Unspecified asthma, uncomplicated (principal); N18.4 Chronic kidney disease, stage 4 (severe); E55.9 Vitamin D deficiency, unspecified; N17.9 Acute kidney failure, unspecified; N25.81 Secondary hyperparathyroidism of renal origin; M10.9 Gout, unspecified; N39.0 Urinary tract infection, site not specified; D64.9 Anemia, unspecified; R80.9 Proteinuria, unspecified
CPT/HCPCS: 36415; 80048; 81001; 82040; 82306; 82570; 82728; 82785; 83516; 83540; 83550; 83735; 83883; 83970; 84100; 84156; 84550; 85008; 85025; 86003; 86160; 86162; 86255; 86334

== ENCOUNTER → 2021-07-09 | Outpatient (CLI) | payer MEDICARE, BC ==
--- NOTE | 2021-07-09 11:45 | US ---
EXAMINATION TYPE: US kidneys/renal and bladder DATE OF EXAM: 07/09/2021 COMPARISON: Multiple Ultrasounds. Most recent = 08/19/19 CLINICAL HISTORY: I12.9 HYPERTENSIVE CHRONIC KIDNEY DISEASE W STG 1-. EXAM MEASUREMENTS: Right Kidney: 10.2 x 3.9 x 4.0 cm Left Kidney: 9.9x 4.7 x 3.9 cm Post Void Residual Volume: 4.1 mL Right Kidney: No hydronephrosis or masses seen. Multiple cysts throughout kidney. Largest = 2.4 x 2.5 x 2.2 cm. Decreased renal cortex. Left Kidney: No hydronephrosis or masses seen.Multiple cysts throughout kidney. Largest = 2.6 x 2.1 x 2.0 cm. Decreased renal cortex = 1.0 cm Bladder: wnl Bilateral Jets seen: Yes Normal Post Void Residual: Yes There is no evidence for hydronephrosis at this point in time. No nephrolithiasis is seen. No dianna s are identified. The urinary bladder is anechoic. Bilateral ureteral jets are seen. IMPRESSION: Multiple renal cysts as noted.
== END | disposition home or self-care (01) ==
LOC: RADUSWWP 10:43
PROVIDERS: ATTEND Internal Medicine Nephrology
DX: I12.9 Hypertensive chronic kidney disease with stage 1 through stage 4 chronic kidney disease, or unspecified chronic kidney disease (principal); N28.1 Cyst of kidney, acquired
CPT/HCPCS: 76770

== ENCOUNTER 2021-07-23 16:38 | Emergency (ER) | payer MEDICARE, BC ==
--- NOTE | 2021-07-23 18:22 | ED ---
General Adult HPI - General Chief complaint: Nausea/Vomiting/Diarrhea Stated complaint: Abnormal Labs, Poor Kidney function, Dehydrated Time Seen by Provider: 07/23/21 18:17 Source: patient, RN notes reviewed Mode of arrival: ambulatory Limitations: no limitations - History of Present Illness Initial comments: Patient presents with generalized weakness, poor dietary intake, and chronic pain. No headache, no fever or chills, no changes in vision or hearing, no sore throat or difficulty with speech, no neck pain, no chest pain or shortness of breath, no abdominal pain, no nausea or vomiting, no changes in urination or bowel mo vements, no numbness or tingling, no extremity pain, no skin rashes or lesions. Patient does complain of chronic back and neck pain and chronic right knee pain. - Related Data Home Medications Medication Instructions Recorded Confirmed ALPRAZolam [Xanax] 0.25 mg PO Q8HR 09/26/14 07/17/21 Losartan [Cozaar] 25 mg PO DAILY 07/05/21 07/17/21 Allergies Allergy/AdvReac Type Severity Reaction Status Date / Time No Known Allergies Allergy Verified 07/23/21 18:16 Review of Systems ROS Statement: Those systems with pertinent positive or pertinent negative responses have been documented in the HPI. ROS Other: All systems not noted in ROS Statement are negative. Past Medical History Past Medical History: Hypertension, Renal Disease History of Any Multi-Drug Resistant Organisms: None Reported Past Surgical History: Appendectomy, Hysterectomy, Tonsillectomy Past Anesthesia/Blood Transfusion Reactions: No Reported Reaction Past Psychological History: No Psychological Hx Reported Smoking Status: Former smoker Past Alcohol Use History: None Reported Past Drug Use History: None Reported General Exam - General Exam Comments Initial Comments: Patient noted be hypertensive with a systolic blood pressure of 178/88 in triage. No distress otherwise Limitations: no limitations General appearance: alert, in no apparent distress Head exam: Present: atraumatic, normocephalic, normal inspection Eye exam: Present: normal appearance, PERRL, EOMI. Absent: scleral icterus, conjunctival injection, periorbital swelling ENT exam: Present: normal exam, mucous membranes moist Neck exam: Present: normal inspection, full ROM. Absent: tenderness, meningismus, lymphadenopathy Respiratory exam: Present: normal lung sounds bilaterally. Absent: respiratory distress, wheezes, rales, rhonchi, stridor, chest wall tenderness, accessory muscle use, decreased breath sounds, prolonged expiratory Cardiovascular Exam: Present: regular rate, normal rhythm, normal heart sounds. Absent: systolic murmur, diastolic murmur, rubs, gallop, clicks GI/Abdominal exam: Present: soft, normal bowel sounds. Absent: distended, tenderness, guarding, rebound, rigid Extremities exam: Present: normal inspection, full ROM, normal capillary refill, pedal edema (Scant). Absent: tenderness, joint swelling, calf tenderness Back exam: Present: normal inspection Neurological exam: Present: alert, oriented X3, CN II-XII intact Psychiatric exam: Present: normal affect, normal mood Skin exam: Present: warm, dry, intact, normal color. Absent: rash Course Vital Signs 07/23/21 18:16 Temperature 98.2 F Pulse Rate 72 Respiratory 16 Rate Blood Pressure 173/88 O2 Sat by Pulse 98 Oximetry - Reevaluation(s) Reevaluation #1: 07/24/21 02:02 Medical record is reviewed Patient hemodynamically stable. Patient reevaluated. Patient was found be hypertensive and triage. Patient stated that her blood pressure actually been running low at home. Then she states that it was 137 systolic. Patient states that she holds her blood pressure medication if it's below 140. Patient is informed of results and questions answered Patient in no distress EKG Findings - EKG Comments: EKG Findings:: EKG done at 12:32 AM physician reveals sinus rhythm with a rate of 78. Normal axis. Normal QRS morphology. No acute ST or T-wave changes. Poor R-wave progression. Normal intervals. Medical Decision Making - Medical Decision Making Patient presents with vague symptoms of diminished appetite, strange taste in her mouth. Patient believes it may be related to an injection she is receiving from her rendering equipment tender. Patient questioning whether she is dehydrated. Willis called her rendering equipment tender was sent here for evaluation. There was no respiratory distress. No chest pain. No abdominal pain. The patient never made it back to a room. However I saw the patient in triage and again after the laboratory investigations [place]. I had a long discussion with the patient regarding the findings. Slightly high calcium and slightly low sodium were discussed. Patient is to contact her regular doctor and her rendering equipment tender tomorrow. I see no indication for admission at this time. Patient concurs with this. Patient's daughter also in the room. The case was discussed in detail with ED attending physician. Presentation, findings, treatment plan discussed in detail. Supervising physicians Dr. Andres - Lab Data Result diagrams: 07/24/21 00:42 07/24/21 00:42 Lab Results 07/24/21 07/24/21 07/24/21 Range/Units 00:42 00:42 00:42 WBC 5.1 (3.8-10.6) k/uL RBC 3.74 L (3.80-5.40) m/uL Hgb 12.2 (11.4-16.0) gm/dL Hct 37.5 (34.0-46.0) % MCV 100.2 H (80.0-100.0) fL MCH 32.6 (25.0-35.0) pg MCHC 32.6 (31.0-37.0) g/dL RDW 12.9 (11.5-15.5) % Plt Count 290 (150-450) k/uL MPV 7.1 Neutrophils % 60 % Lymphocytes % 28 % Monocytes % 7 % Eosinophils % 2 % Basophils % 1 % Neutrophils # 3.0 (1.3-7.7) k/uL Lymphocytes # 1.4 (1.0-4.8) k/uL Monocytes # 0.3 (0-1.0) k/uL Eosinophils # 0.1 (0-0.7) k/uL Basophils # 0.1 (0-0.2) k/uL Sodium 133 L (137-145) mmol/L Potassium 3.5 (3.5-5.1) mmol/L Chloride 100 (98-107) mmol/L Carbon Dioxide 23 (22-30) mmol/L Anion Gap 10 mmol/L BUN 31 H (7-17) mg/dL Creatinine 2.45 H (0.52-1.04) mg/dL Est GFR (CKD-EPI)AfAm 21 (>60 ml/min/1.73 sqM) Est GFR (CKD-EPI)NonAf 18 (>60 ml/min/1.73 sqM) Glucose 87 (74-99) mg/dL Calcium 11.1 H (8.4-10.2) mg/dL Phosphorus 3.6 (2.5-4.5) mg/dL Magnesium 2.1 (1.6-2.3) mg/dL Total Bilirubin 0.5 (0.2-1.3) mg/dL AST 27 (14-36) U/L ALT 22 (4-34) U/L Alkaline Phosphatase 56 (38-126) U/L Troponin I <0.012 (0.000-0.034) ng/mL Total Protein 7.3 (6.3-8.2) g/dL Albumin 4.7 (3.5-5.0) g/dL Urine Color Urine Appearance (Clear) Urine pH (5.0-8.0) Ur Specific [place] (1.001-1.035) Urine Protein (Negative) Urine Glucose (UA) (Negative) Urine Ketones (Negative) Urine Blood (Negative) Urine Nitrite (Negative) Urine Bilirubin (Negative) Urine Urobilinogen (<2.0) mg/dL Ur Leukocyte Esterase (Negative) 07/24/21 Range/Units 01:00 WBC (3.8-10.6) k/uL RBC (3.80-5.40) m/uL Hgb (11.4-16.0) gm/dL Hct (34.0-46.0) % MCV (80.0-100.0) fL MCH (25.0-35.0) pg MCHC (31.0-37.0) g/dL RDW (11.5-15.5) % Plt Count (150-450) k/uL MPV Neutrophils % % Lymphocytes % % Monocytes % % Eosinophils % % Basophils % % Neutrophils # (1.3-7.7) k/uL Lymphocytes # (1.0-4.8) k/uL Monocytes # (0-1.0) k/uL Eosinophils # (0-0.7) k/uL Basophils # (0-0.2) k/uL Sodium (137-145) mmol/L Potassium (3.5-5.1) mmol/L Chloride (98-107) mmol/L Carbon Dioxide (22-30) mmol/L Anion Gap mmol/L BUN (7-17) mg/dL Creatinine (0.52-1.04) mg/dL Est GFR (CKD-EPI)AfAm (>60 ml/min/1.73 sqM) Est GFR (CKD-EPI)NonAf (>60 ml/min/1.73 sqM) Glucose (74-99) mg/dL Calcium (8.4-10.2) mg/dL Phosphorus (2.5-4.5) mg/dL Magnesium (1.6-2.3) mg/dL Total Bilirubin (0.2-1.3) mg/dL AST (14-36) U/L ALT (4-34) U/L Alkaline Phosphatase (38-126) U/L Troponin I (0.000-0.034) ng/mL Total Protein (6.3-8.2) g/dL Albumin (3.5-5.0) g/dL Urine Color Colorless Urine Appearance Clear (Clear) Urine pH 6.5 (5.0-8.0) Ur Specific [place] 1.004 (1.001-1.035) Urine Protein Negative (Negative) Urine Glucose (UA) Negative (Negative) Urine Ketones Negative (Negative) Urine Blood Negative (Negative) Urine Nitrite Negative (Negative) Urine Bilirubin Negative (Negative) Urine Urobilinogen <2.0 (<2.0) mg/dL Ur Leukocyte Esterase Negative (Negative) Disposition Clinical Impression: Decreased appetite, Hypercalcemia, Hyponatremia, Chronic renal failure syndrome Disposition: HOME SELF-CARE Condition: Good Instructions (If sedation given, give patient instructions): Chronic Kidney Disease (ED), Hypercalcemia (ED), Hypertension (ED) Additional Instructions: Call your regular doctor and your rendering equipment tender in the morning for further guidance. U will need to be rechecked by Dr. Wright. Your sodium was slightly low, calcium was a bit elevated. These will likely need to be monitored and rechecked. Kidney function was stable.Have your blood pressure rechecked by your rendering equipment tender and your learning specialist. COVID-19 test is pending. Your doctor can obtain the results later today. Follow-up with your regular physician as directed. Return to the ER immediately if any symptoms worsen, new symptoms arise, or any other problems develop. Is patient prescribed a controlled substance at d/c from ED?: No Referrals: Ector Wright MD [Primary Care Provider] - 07/24/21 8:00 am Courtney Esparza MD [STAFF PHYSICIAN] - 07/24/21 8:00 am Time of Disposition: 02:00
--- NOTE | 2021-07-23 19:22 | XR ---
EXAMINATION TYPE: XR abdomen acute w cxr DATE OF EXAM: 07/23/2021 6:40 PM INDICATION: Patient age:Female; 80 years old; Reason for study: Generalized weakness; COMPARISON: None. TECHNIQUE: Two radiographic views of the abdomen and an a chest radiograph were obtained. FINDINGS CHEST: Lungs/Pleura: There is increased lucency in the lung apices and flattening of the diaphragm. There is no evidence of pleural effusion, focal consolidation or pneumothorax. Mediastinum: Unremarkable. Vasculature: Normal. Heart: Normal in size. Musculoskeletal: The osseous structures are intact. Other findings: No significant. FINDINGS ABDOMEN: Bowel gas pattern: Normal without dilated loops of small or large bowel. Fecal material and gas are d emonstrated throughout the colon and rectum. Abnormal calcifications: None. Musculoskeletal: Scoliosis changes of the lumbar spine with dextroscoliosis apex. Other: None. IMPRESSION: 1. No radiographic evidence for acute abdominal process. 2. No acute cardiopulmonary process 3. COPD changes.
[2021-07-24 00:50] LABS: Basophils # (A) 0.1 k/uL (0-0.2); Basophils % (A) 1 %; Eosinophils # (A) 0.1 k/uL (0-0.7); Eosinophils % (A) 2 %; HCT 37.5 % (34.0-46.0); HGB 12.2 gm/dL (11.4-16.0); Lymphocytes # (A) 1.4 k/uL (1.0-4.8); Lymphocytes % (A) 28 %; MCH 32.6 pg (25.0-35.0); MCHC 32.6 g/dL (31.0-37.0); MCV 100.2 fL (80.0-100.0); Mean Platelet Volume 7.1; Monocytes # (A) 0.3 k/uL (0-1.0); Monocytes % (A) 7 %; Neutrophils % (A) 60 %; Platelet Count 290 k/uL (150-450); RBC 3.74 m/uL (3.80-5.40); RDW 12.9 % (11.5-15.5); WBC 5.1 k/uL (3.8-10.6)
[2021-07-24 01:05] LABS: Albumin 4.7 g/dL (3.5-5.0); Calcium 11.1 mg/dL (8.4-10.2); Magnesium 2.1 mg/dL (1.6-2.3); Phosphorus 3.6 mg/dL (2.5-4.5); Potassium 3.5 mmol/L (3.5-5.1); Total Bilirubin 0.5 mg/dL (0.2-1.3); Total Protein 7.3 g/dL (6.3-8.2)
[2021-07-24 01:20] LABS: Appearance,Urine Clear (Clear); Bilirubin,Urine Negative (Negative); Blood,Urine Negative (Negative); Color,Urine Colorless; Glucose,Urine (UA) Negative (Negative); Ketones,Urine Negative (Negative); Leukocyte Esterase,Urine Negative (Negative); Nitrite,Urine Negative (Negative); PH, Urine 6.5 (5.0-8.0); Protein,Urine Negative (Negative); Specific Gravity,Urine 1.004 (1.001-1.035); Urobilinogen,Urine <2.0 mg/dL (<2.0)
[2021-07-24 02:09] VITALS: BP 158/75; PULSE 75; RESP 18; TEMP 98.1
== END 2021-07-24 02:09 | disposition home or self-care (01) ==
LOC: EC 16:38
DX: N18.9 Chronic kidney disease, unspecified (principal); E87.1 Hypo-osmolality and hyponatremia; E83.52 Hypercalcemia; I10 Essential (primary) hypertension; Z87.891 Personal history of nicotine dependence
CPT/HCPCS: 36415; 74022; 80053; 81003; 83735; 84100; 84484; 85025; 87635; 93005

== ENCOUNTER → 2021-08-03 | Outpatient (CLI) | payer MEDICARE, BC ==
--- NOTE | 2021-08-03 17:03 | MR ---
EXAMINATION TYPE: MR cspine/tspine/lspine wo con DATE OF EXAM: 08/03/2021 COMPARISON: None HISTORY: Neck and back pain, RUE and BLE radiculopathy. TECHNIQUE: Multiplanar, multisequence imaging of the cervical, thoracic, lumbar spine is performed wi thout IV contrast. FINDINGS: Cervical spine MRI: There is multilevel spondylosis. Anterolisthesis grade 1 C3-4, retrolisthesis gra de 1 C4-5 noted, there is loss of disc height at C3-4, C4-5 and C5-6, endplate discogenic marrow sign al change and associated spondylosis. No significant spinal stenosis. Cervical cord signal is maintai anaya. C2-3 shows no sizable disc herniation. C3-4: Posterior extension endplate disc complex is noted causing some mild anterior mass effect on th e thecal sac. Uncovertebral joint hypertrophy results in some mild foraminal encroachment bilaterally . C4-5: There is foraminal encroachment on the right than left due to uncovertebral joint hypertrophy a nd facet arthropathy, posterior extension endplate disc complex causes anterior mass effect on the th ecal sac. C5-6: Uncovertebral joint hypertrophy results in some right-sided foraminal encroachment. Posterior e xtension endplate disc complex causes minimal anterior mass effect on the thecal sac C6-7: Unremarkable C7-T1: Within normal limits IMPRESSION: Degenerative disc disease. Thoracic spine MRI: Thoracic vertebral bodies show preserved height and alignment. There is mild mult ilevel spondylosis, endplate discogenic marrow signal change. T2 vertebral body shows probable anya ioma. There is no significant spinal stenosis or sizable disc herniation. Facet arthropathy changes a re present especially in the lower lumbar spine. Minimal posterior disc bulge is noted. T7-8 shows a left posterior paracentral disc protrusion causing minimal anterolateral mass effect on the thecal sa c. Possible parapelvic cysts associated with the right kidney, multiple cortical cysts are associated wi th the left kidney and right kidney. IMPRESSION: Degenerative disc disease and facet arthropathy. Lumbar spine MRI: Lumbar vertebral bodies show preserved height, there is multilevel spondylosis with endplate discogen ic marrow signal change. Slight spinal curvature is noted. There is loss of disc height signal at int ervertebral levels consistent with disc desiccation and degenerative disc disease, relatively sparing of L5-S1. Vacuum phenomenon present L4-5 and L3-4, L1 to. Anterolisthesis grade 1 L3-4, retrolisthes is grade 1 L4-5 noted. The conus is at T12 shows an unremarkable appearance. T12-L1: No evident disc herniation. There is mild facet arthropathy change. No significant spinal remi nosis. L1-2: Posterior broad-based disc bulge causes minimal anterior mass effect on the thecal sac, there i s circumferential extension towards the left foramen of broad-based disc bulge causing some foraminal encroachment possibly accentuated by spinal curvature. There is facet arthropathy causing some later al mass effect on the thecal sac. No significant spinal stenosis. L2-3: Facet arthropathy with hypertrophy ligamentum flavum causes some posterior lateral mass effect on the thecal sac. Circumferential extension of disc bulge towards the left encroaches upon the infer ior aspect of the neural foramen. L3-4: There is facet arthropathy with hypertrophic changes causing posterior lateral mass effect on t he thecal sac greater on the right, listhesis contributes to cause a trefoil appearance of the thecal sac, anterior mass effect on the thecal sac is noted, listhesis also continues cause foraminal encro achment due to circumferential extension endplate disc complex. Mild to moderate spinal stenosis. L4-5: Posterior extension endplate disc complex causes mild anterior mass effect on the thecal sac. N o significant foraminal encroachment or spinal stenosis. There is facet arthropathy with hypertrophy ligamentum flavum noted. L5-S1 shows facet arthropathy. No disc herniation or significant foraminal encroachment, no spinal st enosis. IMPRESSION: Degenerative disc disease, facet arthropathy, spinal stenosis and multilevel foraminal en croachment as described.,
== END | disposition home or self-care (01) ==
LOC: RADMRIMAIN 15:16
PROVIDERS: ATTEND Nurse Practitioner Gerontology
DX: M51.34 Other intervertebral disc degeneration, thoracic region (principal); M54.16 Radiculopathy, lumbar region; M54.2 Cervicalgia
CPT/HCPCS: 72141; 72146; 72148

== ENCOUNTER → 2021-11-26 | Outpatient (CLI) | payer MEDICARE, BC ==
[2021-11-26 11:32] LABS: Appearance,Urine Clear (Clear); Bilirubin,Urine Negative (Negative); Blood,Urine Negative (Negative); Color,Urine Yellow; Glucose,Urine (UA) Negative (Negative); Hyaline Casts,Urine 1 /lpf (0-2); Ketones,Urine Negative (Negative); Leukocyte Esterase,Urine Moderate (Negative); Mucus,Urine Rare /hpf; Nitrite,Urine Negative (Negative); PH, Urine 5.5 (5.0-8.0); Protein,Urine Trace (Negative); RBC,Urine 1 /hpf (0-5); Specific Gravity,Urine 1.016 (1.001-1.035); Squamous Epithelial Cell,Urine <1 /hpf (0-4); Urobilinogen,Urine <2.0 mg/dL (<2.0); WBC,Urine 16 /hpf (0-5)
[2021-11-26 11:42] LABS: Creatinine,Urine Random 128.6 mg/dL; Protein/Creatinine Ratio,Urine 0.148
[2021-11-26 14:24] LABS: Basophils # (A) 0.02 X 10*3/uL (0.00-0.10); Basophils % (A) 0.4 %; Eosinophils # (A) 0.08 X 10*3/uL (0.04-0.35); Eosinophils % (A) 1.8 %; HCT 27.3 % (37.2-46.3); HGB 9.1 g/dL (12.0-15.0); Immature Grans, Automated 0 %; Lymphocytes % (A) 28.5 %; MCH 32.7 pg (27.0-32.0); MCHC 33.3 g/dL (32.0-37.0); MCV 98.2 fL (80.0-97.0); Mean Platelet Volume 10.3 fL (9.5-12.2); Monocytes # (A) 0.38 X 10*3/uL (0.20-1.00); Monocytes % (A) 8.3 %; NRBC Per 100 WBC 0 /100 WBCS (0.0-0.0); Neutrophils # (A) 2.78 X 10*3/uL (1.80-7.70); Platelet Count 173 X 10*3/uL (140-440); RBC 2.78 X 10*6/uL (4.10-5.20); RDW 12.6 % (11.5-14.5); WBC 4.56 X 10*3/uL (4.50-10.00)
[2021-11-26 14:41] LABS: % Iron Saturation 28.11 (12.00-45.00); African American GFR (CKD) 19.5 (60.0-200.0); Anion Gap 12.1 mmol/L (10.00-18.00); BUN/Creat Ratio 16.51 Ratio (12.00-20.00); Blood Urea Nitrogen 42.6 mg/dL (9.0-27.0); Calcium 9.2 mg/dL (8.7-10.3); Carbon Dioxide 19.1 mmol/L (20.0-27.5); Magnesium 2.1 mg/dL (1.5-2.4); Non-African American GFR(CKD) 16.8 (60.0-200.0); Phosphorus 3.7 mg/dL (2.4-5.1); Potassium 4.1 mmol/L (3.5-5.5)
[2021-11-26 14:47] LABS: Albumin 4.2 g/dL (3.8-4.9)
== END | disposition home or self-care (01) ==
LOC: LABWHC1 10:58
PROVIDERS: ATTEND Nurse Practitioner Family
DX: N18.4 Chronic kidney disease, stage 4 (severe) (principal); E55.9 Vitamin D deficiency, unspecified; E21.3 Hyperparathyroidism, unspecified; N39.0 Urinary tract infection, site not specified; D64.9 Anemia, unspecified
CPT/HCPCS: 36415; 80048; 81001; 82040; 82306; 82570; 82728; 83540; 83550; 83735; 83970; 84100; 84156; 85025; 87086

== ENCOUNTER → 2021-12-27 | Outpatient (CLI) | payer MEDICARE, BC ==
--- NOTE | 2021-12-27 14:22 | BD ---
EXAMINATION TYPE: Axial Bone Density DATE OF EXAM: 12/27/2021 COMPARISON: 04.20.2014 CLINICAL HISTORY: 81 years year old Female. ICD-10 CODE: M81.0 AGE-RELATED OSTEOPOROSIS Height: Weight: FRAX RISK QUESTIONS: Secondary Osteoporosis: YES 3. Menopause before 45: YES RENAL CONCERNS RISK FACTORS: HISTORY OF: Postmenopausal woman: YES, TOTAL HYST AT 39 YRS OLD Lost more than 2 inches in height since high school: YES Hyperparathyroidism: NO Adrenal Insufficiency: NO MEDICATIONS: Additional Medications: BP MEDS, STATIN FOR CHOLESTEROL, VIT D Additional History: HYPERTENSION, CHOLESTEROL, EXAM MEASUREMENTS: Bone mineral densitometry was performed using the [employer] System. Bone mineral density as measured about the Lumbar spine is: ----- L1-L4(G/cm2): 0.939 T Score Values are as follows: ----- L1: -2.5 ----- L2: -2.4 ----- L3: -1.8 ----- L4: -1.7 ----- L1-L4: -2.0 Bone mineral density has: Decreased -15.6% since study of: 04.20.2014 Bone mineral density about the R hip (g/cm2): 0.801 Bone mineral density about the L hip (g/cm2): 0.749 T Score values are as follows: -----R Neck: -1.4 -----L Neck: -2.0 -----R Total: -1.6 -----L Total: -2.1 Bone mineral density has: Decreased -8.1% since study of: 04.20.2014 FRAX%s: The graph provided illustrates a 18.1% chance for a major osteoporotic fx and a 5.3% chance f or the hips probability for fx in 10 years time. IMPRESSION: Osteopenia (T Score between -2.5 and -1) remains present. There is slightly increased risk of fracture and the patient may be considered for treatment. Re-Screen 2-5 years. NOTE: T-SCORE=SD OF THE YOUNG ADULT MEAN.
--- NOTE | 2021-12-28 09:12 | MM ---
Reason for Exam: Screening (asymptomatic). Last mammogram was performed 3 year(s) and 2 month(s) ago. Patient History: Menarche at age 13. First Full-Term at age 23. Hysterectomy at age 38. Postmenopausal. Benign Excisional Biopsy on the left side. Risk Values: Sonya 5 year model risk: 1.7%. NCI Lifetime model risk: 2.5%. Prior Study Comparison: 04/20/2014 Bilateral Screening Mammogram, [facility]. 11/12/2016 Bilateral Screening Mammogram, [facility]. 10/16/2018 Bilateral Screening Mammogram, [facility]. Tissue Density: The breast tissue is heterogeneously dense. This may lower the sensitivity of mammography. Findings: Analyzed By CAD. Scattered areas of asymmetric density remain unchanged when comparing to variable prior exams. There is no suspicious group of microcalcifications or new suspicious mass in either breast. Overall Assessment: Benign, BI-RAD 2 Management: Screening Mammogram of both breasts in 1 year. 1. Patient should continue monthly self breast exams. 2. A clinical breast exam by your physician is recommended on an annual basis. 3. This exam should not preclude additional follow-up of suspicious palpable abnormalities. Electronically signed and approved by: Danielito Aragon M.D. Radiologist
== END | disposition home or self-care (01) ==
LOC: RADBDWWP 12:31
PROVIDERS: ATTEND Internal Medicine Geriatric Medicine
DX: Z12.31 Encounter for screening mammogram for malignant neoplasm of breast (principal); M81.0 Age-related osteoporosis without current pathological fracture
CPT/HCPCS: 77063; 77067; 77080

== ENCOUNTER → 2022-03-06 | Outpatient (CLI) | payer MEDICARE, BC ==
[2022-03-06 13:51] LABS: Appearance,Urine Clear (Clear); Bilirubin,Urine Negative (Negative); Blood,Urine Negative (Negative); Color,Urine Colorless; Glucose,Urine (UA) Negative (Negative); Ketones,Urine Negative (Negative); Leukocyte Esterase,Urine Trace (Negative); Nitrite,Urine Negative (Negative); Protein,Urine Negative (Negative); RBC,Urine <1 /hpf (0-5); Specific Gravity,Urine 1.008 (1.001-1.035); Urobilinogen,Urine <2.0 mg/dL (<2.0); WBC,Urine 1 /hpf (0-5)
[2022-03-06 17:45] LABS: Basophils # (A) 0.02 X 10*3/uL (0.00-0.10); Basophils % (A) 0.5 %; Eosinophils # (A) 0.09 X 10*3/uL (0.04-0.35); Eosinophils % (A) 2.5 %; HCT 28.9 % (37.2-46.3); HGB 9.2 g/dL (12.0-15.0); Immature Grans, Automated 0.3 %; Lymphocytes # (A) 1.14 X 10*3/uL (0.90-5.00); Lymphocytes % (A) 31.2 %; MCH 31.7 pg (27.0-32.0); MCHC 31.8 g/dL (32.0-37.0); MCV 99.7 fL (80.0-97.0); Mean Platelet Volume 10.4 fL (9.5-12.2); Monocytes # (A) 0.33 X 10*3/uL (0.20-1.00); NRBC Per 100 WBC 0 /100 WBCS (0.0-0.0); Neutrophils # (A) 2.06 X 10*3/uL (1.80-7.70); Neutrophils % (A) 56.5 %; Platelet Count 165 X 10*3/uL (140-440); RDW 12.4 % (11.5-14.5); WBC 3.65 X 10*3/uL (4.50-10.00)
[2022-03-06 18:26] LABS: % Iron Saturation 22.52 (12.00-45.00); African American GFR (CKD) 18.9 (60.0-200.0); BUN/Creat Ratio 15.87 Ratio (12.00-20.00); Blood Urea Nitrogen 41.9 mg/dL (9.0-27.0); Calcium 9.6 mg/dL (8.7-10.3); Carbon Dioxide 17.3 mmol/L (20.0-27.5); Chloride 109 mmol/L (96-109); Glucose 86 mg/dL (70-110); Iron 70 ug/dL (50-170); Magnesium 2.2 mg/dL (1.5-2.4); Non-African American GFR(CKD) 16.3 (60.0-200.0); Potassium 4.1 mmol/L (3.5-5.5); Sodium 144 mmol/L (135-145); Total Iron Binding Capacity 311 ug/dL (228-460); Uric Acid 5.7 mg/dL (2.9-7.7)
[2022-03-06 19:52] LABS: Microalbumin Creatinine Ratio <30 mg/g Creat (0-30); Urine Creatinine 35.1 mg/dL (28.0-217.0)
[2022-03-06 20:50] LABS: Albumin 4.4 g/dL (3.8-4.9); Chol/HDL Ratio 1.73 Ratio; LDL Cholesterol,Calculated 54.9 mg/dL (0.0-131.0)
== END | disposition home or self-care (01) ==
LOC: LABWHC1 09:31
PROVIDERS: ATTEND Internal Medicine Nephrology
DX: N18.4 Chronic kidney disease, stage 4 (severe) (principal); E55.9 Vitamin D deficiency, unspecified; N25.81 Secondary hyperparathyroidism of renal origin; M10.9 Gout, unspecified; N39.0 Urinary tract infection, site not specified; D63.1 Anemia in chronic kidney disease
CPT/HCPCS: 36415; 80048; 80061; 81001; 82040; 82043; 82306; 82570; 83540; 83550; 83735; 83970; 84100; 84550; 85025

== ENCOUNTER → 2022-06-13 | Outpatient (CLI) | payer MEDICARE, BC ==
[2022-06-13 16:00] LABS: Basophils # (A) 0.03 X 10*3/uL (0.00-0.10); Basophils % (A) 0.7 %; Eosinophils # (A) 0.13 X 10*3/uL (0.04-0.35); Eosinophils % (A) 2.9 %; HCT 30.5 % (37.2-46.3); HGB 9.9 g/dL (12.0-15.0); Immature Grans, Automated 0.4 %; Lymphocytes # (A) 1.19 X 10*3/uL (0.90-5.00); Lymphocytes % (A) 26.1 %; MCH 32.6 pg (27.0-32.0); MCHC 32.5 g/dL (32.0-37.0); MCV 100.3 fL (80.0-97.0); Mean Platelet Volume 10.4 fL (9.5-12.2); Monocytes # (A) 0.33 X 10*3/uL (0.20-1.00); Monocytes % (A) 7.2 %; NRBC Per 100 WBC 0 /100 WBCS (0.0-0.0); Neutrophils # (A) 2.86 X 10*3/uL (1.80-7.70); Neutrophils % (A) 62.7 %; Platelet Count 178 X 10*3/uL (140-440); RBC 3.04 X 10*6/uL (4.10-5.20); RDW 12.1 % (11.5-14.5); WBC 4.56 X 10*3/uL (4.50-10.00)
[2022-06-13 16:45] LABS: Chol/HDL Ratio 1.65 Ratio; LDL Cholesterol,Calculated 61.8 mg/dL (0.0-131.0)
[2022-06-13 18:11] LABS: % Iron Saturation 20.39 (12.00-45.00); Iron 71 ug/dL (50-170); Magnesium 2.3 mg/dL (1.5-2.4); Phosphorus 4.4 mg/dL (2.4-5.1); Total Iron Binding Capacity 347 ug/dL (228-460); Uric Acid 5.6 mg/dL (2.9-7.7)
[2022-06-13 18:17] LABS: ALT 15 U/L (8-44); AST 19 U/L (13-35); African American GFR (CKD) 17.5 (60.0-200.0); Albumin 4.8 g/dL (3.8-4.9); Alkaline Phosphatase 70 U/L (41-126); BUN/Creat Ratio 15.89 Ratio (12.00-20.00); Blood Urea Nitrogen 44.8 mg/dL (9.0-27.0); Calcium 9.9 mg/dL (8.7-10.3); Carbon Dioxide 18.1 mmol/L (20.0-27.5); Chloride 105 mmol/L (96-109); Globulin 2.3 g/dL (1.6-3.3); Glucose 88 mg/dL (70-110); Non-African American GFR(CKD) 15.1 (60.0-200.0); Potassium 3.9 mmol/L (3.5-5.5); Sodium 139 mmol/L (135-145)
[2022-06-13 21:06] LABS: Appearance,Urine Clear (Clear); Bilirubin,Urine Negative (Negative); Blood,Urine Negative (Negative); Color,Urine Yellow (Yellow); Ketones,Urine Negative (Negative); Nitrite,Urine Negative (Negative); PH, Urine 6.5 (5.0-8.0); Specific Gravity,Urine 1.011 (1.001-1.030); Urobilinogen,Urine 0.2 (0.2,1.0)
[2022-06-13 21:10] LABS: Bacteria,Urine None Seen /HPF (None Seen)
[2022-06-13 23:34] LABS: Urine Creatinine 57.4 mg/dL (28.0-217.0)
== END | disposition home or self-care (01) ==
LOC: LABWHC1 09:25
PROVIDERS: ATTEND Internal Medicine Geriatric Medicine
DX: E55.9 Vitamin D deficiency, unspecified (principal); E78.2 Mixed hyperlipidemia; D50.9 Iron deficiency anemia, unspecified; N18.4 Chronic kidney disease, stage 4 (severe); D63.1 Anemia in chronic kidney disease; E21.3 Hyperparathyroidism, unspecified; M10.9 Gout, unspecified; N39.0 Urinary tract infection, site not specified
CPT/HCPCS: 36415; 80053; 80061; 81001; 82043; 82306; 82570; 82728; 83540; 83550; 83735; 83970; 84100; 84443; 84550; 85025; 86900; 86901

== ENCOUNTER → 2022-06-17 | Outpatient (CLI) | payer MEDICARE, BC ==
[2022-06-17 16:50] LABS: African American GFR (CKD) 16.2 (60.0-200.0); Anion Gap 13.5 mmol/L (10.00-18.00); BUN/Creat Ratio 16.2 Ratio (12.00-20.00); Blood Urea Nitrogen 48.6 mg/dL (9.0-27.0); Calcium 9.6 mg/dL (8.7-10.3); Carbon Dioxide 20.5 mmol/L (20.0-27.5)
== END | disposition home or self-care (01) ==
LOC: LABWHC1 09:27
PROVIDERS: ATTEND Nurse Practitioner Family
DX: N18.4 Chronic kidney disease, stage 4 (severe) (principal)
CPT/HCPCS: 36415; 80048

== ENCOUNTER → 2022-08-14 | Outpatient (CLI) | payer MEDICARE, BC ==
[2022-08-14 16:32] LABS: % Iron Saturation 31.31 (12.00-45.00); Albumin 4.5 d/dL (3.8-4.9); BUN/Creat Ratio 17.79 Ratio (12.00-20.00); Blood Urea Nitrogen 51.6 mg/dL (9.0-27.0); Calcium 9.8 mg/dL (8.7-10.3); Carbon Dioxide 20.8 mmol/L (21.6-31.8); Chloride 104 mmol/L (96-109); Glucose 90 mg/dL (70-110); Iron 103 UG/DL (50-170); Magnesium 2.4 mg/dL (1.5-2.4); Potassium 4.5 mmol/L (3.5-5.5); Sodium 140 mmol/L (135-145); T4, Free (Free Thyroxine) 1.28 ng/dL (0.80-1.80); Total Iron Binding Capacity 329 UG/DL (228-460); Uric Acid 5.4 mg/dL (2.9-7.7)
[2022-08-14 19:16] LABS: Basophils # (A) 0.04 X 10*3/uL (0.00-0.10); Basophils % (A) 1.1 %; Eosinophils % (A) 2.7 %; HCT 29.2 % (37.2-46.3); HGB 9.3 d/dL (12.0-15.0); Lymphocytes # (A) 1.01 X 10*3/uL (0.90-5.00); Lymphocytes % (A) 27.6 %; MCH 32.2 pg (27.0-32.0); MCHC 31.8 d/dL (32.0-37.0); Mean Platelet Volume 10.7 FL (9.5-12.2); Monocytes # (A) 0.32 X 10*3/uL (0.20-1.00); Monocytes % (A) 8.7 %; NRBC Per 100 WBC 0 X 10*3/uL (0.00-0.01); Neutrophils # (A) 2.18 X 10*3/uL (1.80-7.70); Neutrophils % (A) 59.6 %; Platelet Count 175 X 10*3/uL (140-440); RBC 2.89 X 10*6/uL (4.10-5.20); RDW 12.1 % (11.5-14.5); WBC 3.66 X 10*3/uL (4.50-10.00)
[2022-08-14 22:22] LABS: Appearance,Urine Clear (Clear); Bacteria,Urine None Seen (None Seen); Bilirubin,Urine Negative (Negative); Blood,Urine Negative (Negative); Color,Urine Yellow (Yellow); Ketones,Urine Negative (Negative); Nitrite,Urine Negative (Negative); Urobilinogen,Urine 0.2
[2022-08-14 23:43] LABS: Urine Creatinine 48.3 mg/dL (28.0-217.0)
== END | disposition home or self-care (01) ==
LOC: LABWHC1 10:27
PROVIDERS: ATTEND Nurse Practitioner Family
DX: N25.81 Secondary hyperparathyroidism of renal origin (principal); M10.9 Gout, unspecified; N39.0 Urinary tract infection, site not specified; N18.4 Chronic kidney disease, stage 4 (severe); R94.6 Abnormal results of thyroid function studies; R80.9 Proteinuria, unspecified
CPT/HCPCS: 36415; 80048; 82040; 82043; 82570; 82728; 83540; 83550; 83735; 83970; 84439; 84443; 84550; 85025

== ENCOUNTER → 2022-10-16 | Outpatient (CLI) | payer MEDICARE, BC ==
[2022-10-16 17:28] LABS: Basophils # (A) 0.03 X 10*3/uL (0.00-0.10); Basophils % (A) 0.7 %; Eosinophils # (A) 0.14 X 10*3/uL (0.04-0.35); Eosinophils % (A) 3.1 %; HCT 28.3 % (37.2-46.3); HGB 9.5 d/dL (12.0-15.0); Lymphocytes # (A) 1.35 X 10*3/uL (0.90-5.00); Lymphocytes % (A) 29.9 %; MCH 32.8 pg (27.0-32.0); MCHC 33.6 d/dL (32.0-37.0); MCV 97.6 FL (80.0-97.0); Monocytes # (A) 0.37 X 10*3/uL (0.20-1.00); Monocytes % (A) 8.2 %; NRBC Per 100 WBC 0 X 10*3/uL (0.00-0.01); Neutrophils # (A) 2.62 X 10*3/uL (1.80-7.70); Neutrophils % (A) 57.9 %; Platelet Count 166 X 10*3/uL (140-440); RDW 12.3 % (11.5-14.5); WBC 4.52 X 10*3/uL (4.50-10.00)
[2022-10-16 17:45] LABS: % Iron Saturation 25.39 (12.00-45.00); Albumin 4.5 d/dL (3.8-4.9); BUN/Creat Ratio 15.44 Ratio (12.00-20.00); Blood Urea Nitrogen 49.4 mg/dL (9.0-27.0); Calcium 9.7 mg/dL (8.7-10.3); Carbon Dioxide 20.1 mmol/L (21.6-31.8); Chloride 106 mmol/L (96-109); Glucose 92 mg/dL (70-110); Iron 81 UG/DL (50-170); Magnesium 2.4 mg/dL (1.5-2.4); Phosphorus 4.6 mg/dL (2.4-5.1); Potassium 4.4 mmol/L (3.5-5.5); Sodium 139 mmol/L (135-145); Total Iron Binding Capacity 319 UG/DL (228-460); Uric Acid 5.2 mg/dL (2.9-7.7)
[2022-10-16 23:33] LABS: Microalbumin Creatinine Ratio <52 mg/g Cr (0-30); Urine Creatinine 23.3 mg/dL (28.0-217.0)
[2022-10-16 23:41] LABS: Appearance,Urine Clear (Clear); Bacteria,Urine None Seen (None Seen); Bilirubin,Urine Negative (Negative); Blood,Urine Negative (Negative); Color,Urine Yellow (Yellow); Ketones,Urine Negative (Negative); Nitrite,Urine Negative (Negative); Specific Gravity,Urine 1.005 (1.001-1.030); Urobilinogen,Urine 0.2 E.U./DL
== END | disposition home or self-care (01) ==
LOC: LABWHC1 07:30
PROVIDERS: ATTEND Internal Medicine Nephrology
DX: E55.9 Vitamin D deficiency, unspecified (principal); D63.1 Anemia in chronic kidney disease; N18.9 Chronic kidney disease, unspecified; N25.81 Secondary hyperparathyroidism of renal origin; M10.9 Gout, unspecified; N39.0 Urinary tract infection, site not specified
CPT/HCPCS: 36415; 80048; 81001; 82040; 82043; 82306; 82570; 82728; 83540; 83550; 83735; 83970; 84100; 84550; 85025

== ENCOUNTER → 2022-12-16 | Outpatient (CLI) | payer MEDICARE, BC ==
[2022-12-16 15:43] LABS: Basophils # (A) 0.03 X 10*3/uL (0.00-0.10); Basophils % (A) 0.7 %; Eosinophils # (A) 0.11 X 10*3/uL (0.04-0.35); Eosinophils % (A) 2.5 %; HCT 27.7 % (37.2-46.3); HGB 9.1 d/dL (12.0-15.0); Lymphocytes % (A) 24.6 %; MCH 32.4 pg (27.0-32.0); MCHC 32.9 d/dL (32.0-37.0); MCV 98.6 FL (80.0-97.0); Mean Platelet Volume 10.4 FL (9.5-12.2); Monocytes # (A) 0.29 X 10*3/uL (0.20-1.00); Monocytes % (A) 6.5 %; NRBC Per 100 WBC 0 X 10*3/uL (0.00-0.01); Neutrophils # (A) 2.94 X 10*3/uL (1.80-7.70); Neutrophils % (A) 65.5 %; Platelet Count 159 X 10*3/uL (140-440); RBC 2.81 X 10*6/uL (4.10-5.20); RDW 11.9 % (11.5-14.5); WBC 4.48 X 10*3/uL (4.50-10.00)
[2022-12-16 16:21] LABS: % Iron Saturation 23.91 (12.00-45.00); ALT 11 U/L (8-44); AST 14 U/L (13-35); Albumin 4.2 d/dL (3.8-4.9); Alkaline Phosphatase 61 U/L (41-126); BUN/Creat Ratio 14.94 Ratio (12.00-20.00); Blood Urea Nitrogen 49.3 mg/dL (9.0-27.0); Calcium 9.2 mg/dL (8.7-10.3); Carbon Dioxide 20.4 mmol/L (21.6-31.8); Chloride 105 mmol/L (96-109); Chol/HDL Ratio 1.62 Ratio; Glucose 92 mg/dL (70-110); Iron 71 UG/DL (50-170); LDL Cholesterol,Calculated 54.4 mg/dL (0.0-131.0); Magnesium 2.2 mg/dL (1.5-2.4); Phosphorus 4.6 mg/dL (2.4-5.1); Potassium 4.1 mmol/L (3.5-5.5); Sodium 140 mmol/L (135-145); T4, Free (Free Thyroxine) 1.11 ng/dL (0.80-1.80); Total Bilirubin 0.2 mg/dL (0.3-1.2); Total Iron Binding Capacity 297 UG/DL (228-460); Total Protein 6.2 d/dL (6.2-8.2); Uric Acid 4.9 mg/dL (2.9-7.7); VLDL Calculation 9.56 mg/dL (5.00-40.00)
[2022-12-16 16:50] LABS: Appearance,Urine Clear (Clear); Bilirubin,Urine Negative (Negative); Blood,Urine Negative (Negative); Color,Urine Yellow (Yellow); Ketones,Urine Negative (Negative); Nitrite,Urine Negative (Negative); PH, Urine 5.5; Specific Gravity,Urine 1.015 (1.001-1.030); Urobilinogen,Urine 0.2 E.U./DL
[2022-12-16 16:58] LABS: Bacteria,Urine None Seen (None Seen)
== END | disposition home or self-care (01) ==
LOC: LABWHC1 09:39
PROVIDERS: ATTEND Internal Medicine Nephrology
DX: Z00.00 Encounter for general adult medical examination without abnormal findings (principal); N18.4 Chronic kidney disease, stage 4 (severe); E78.2 Mixed hyperlipidemia; D63.1 Anemia in chronic kidney disease; N39.0 Urinary tract infection, site not specified; R80.9 Proteinuria, unspecified; M10.9 Gout, unspecified; R73.9 Hyperglycemia, unspecified; R94.6 Abnormal results of thyroid function studies
CPT/HCPCS: 36415; 80053; 80061; 81001; 82043; 82570; 82728; 83036; 83540; 83550; 83735; 84100; 84439; 84443; 84550; 85025

== ENCOUNTER → 2023-02-11 | Outpatient (CLI) | payer MEDICARE, BC ==
[2023-02-11 09:58] LABS: Basophils % (A) 1 %; Eosinophils # (A) 0.1 k/uL (0-0.7); Eosinophils % (A) 3 %; HCT 31.2 % (34.0-46.0); HGB 9.8 gm/dL (11.4-16.0); Hypochromasia Moderate; Lymphocytes # (A) 1.4 k/uL (1.0-4.8); Lymphocytes % (A) 34 %; MCHC 31.5 g/dL (31.0-37.0); MCV 104.5 fL (80.0-100.0); Macrocytosis Slight; Mean Platelet Volume 9.7; Monocytes # (A) 0.4 k/uL (0-1.0); Monocytes % (A) 9 %; Neutrophils % (A) 51 %; Platelet Count 123 k/uL (150-450); RBC 2.98 m/uL (3.80-5.40); RDW 12.3 % (11.5-15.5)
[2023-02-11 16:44] LABS: Appearance,Urine Clear (Clear); Bilirubin,Urine Negative (Negative); Blood,Urine Negative (Negative); Color,Urine Yellow (Yellow); Ketones,Urine Negative (Negative); Nitrite,Urine Negative (Negative); PH, Urine 7.5; Specific Gravity,Urine 1.011 (1.001-1.030); Urobilinogen,Urine 0.2 E.U./DL
[2023-02-11 16:54] LABS: Bacteria,Urine None Seen (None Seen)
== END | disposition home or self-care (01) ==
LOC: LABWHC1 08:32
PROVIDERS: ATTEND Internal Medicine Nephrology
DX: N18.4 Chronic kidney disease, stage 4 (severe) (principal); M10.9 Gout, unspecified; N39.0 Urinary tract infection, site not specified; R80.9 Proteinuria, unspecified
CPT/HCPCS: 36415; 80048; 81001; 82040; 82043; 82570; 82728; 83540; 83550; 84100; 84550; 85025

== ENCOUNTER → 2023-02-13 | Outpatient (CLI) | payer MEDICARE, BC ==
[2023-02-14 02:51] LABS: % Iron Saturation 29.35 (12.00-45.00); Iron 86 UG/DL (50-170); Total Iron Binding Capacity 293 UG/DL (228-460); Uric Acid 5.3 mg/dL (2.9-7.7)
[2023-02-14 03:38] LABS: Magnesium 2.1 mg/dL (1.5-2.4); Phosphorus 3.9 mg/dL (2.4-5.1)
[2023-02-14 04:42] LABS: Albumin 4.2 g/dL (3.8-4.9); BUN/Creat Ratio 11.17 Ratio (12.00-20.00); Blood Urea Nitrogen 40.2 mg/dL (9.0-27.0); Calcium 9.4 mg/dL (8.7-10.3); Carbon Dioxide 20.3 mmol/L (21.6-31.8); Chloride 104 mmol/L (96-109); Glucose 173 mg/dL (70-110); Potassium 3.8 mmol/L (3.5-5.5); Sodium 140 mmol/L (135-145)
== END | disposition home or self-care (01) ==
LOC: LABWHC1 12:48
PROVIDERS: ATTEND Nurse Practitioner Family
DX: N18.4 Chronic kidney disease, stage 4 (severe) (principal); M10.9 Gout, unspecified; N39.0 Urinary tract infection, site not specified; R80.9 Proteinuria, unspecified
CPT/HCPCS: 36415; 80048; 82040; 82728; 83540; 83550; 83735; 84100; 84550

== ENCOUNTER → 2023-05-08 | Outpatient (CLI) | payer MEDICARE, BC ==
--- NOTE | 2023-05-08 22:02 | XR ---
EXAMINATION TYPE: XR lumbar spine 3V, XR Hip Complete 2 views LT DATE OF EXAM: 05/08/2023 Comparison: None Clinical History: 82-year-old female M54.32 Findings: Lumbar spine: Hypertrophic facet arthropathy especially mid to lower lumbar spine. Baastrup's disease lower lumbar spine. Moderate to severe degenerative disc disease L4-L5 and moderate elsewhere particularly at L2/L 3 and L3-L4 with disc vacuum and some disc space narrowing. There is trace grade 1 retrolisthesis L2-L3 and L4-L5. Grade 1 anterolisthesis L3-L4. Vertebral body heights are preserved. There is a dextroconvex scoliosis of the lumbar spine. 5 lumbar type vertebral bodies. Atherosclerotic calcifications throughout the abdominal aorta. Left hip: Osteopenia. No acute fracture, subluxation, dislocation is seen. Joint spaces relatively maintained. Impression: Lumbar spine: 1. Moderate to severe hypertrophic facet arthropathy especially mid to lower lumbar spine. Degenerati ve grade 1 spondylolisthesis L2/L3, L3-L4, and L4-L5. 2. Dextroconvex scoliosis lumbar spine. 3. Moderate to severe degenerative disc disease L4-L5 and moderate at L2-L3 and L3-L4. 4. Baastrup's disease lower lumbar spine. Left hip: 5. Osteopenia without displaced fracture. Joint space appears relatively maintained.
== END | disposition home or self-care (01) ==
LOC: RADXRMAIN 11:06
PROVIDERS: ATTEND Internal Medicine Geriatric Medicine
DX: M51.16 Intervertebral disc disorders with radiculopathy, lumbar region (principal); M47.26 Other spondylosis with radiculopathy, lumbar region; M43.16 Spondylolisthesis, lumbar region; M48.26 Kissing spine, lumbar region; M85.852 Other specified disorders of bone density and structure, left thigh
CPT/HCPCS: 72100; 73502

== ENCOUNTER → 2023-06-25 | Outpatient (CLI) | payer MEDICARE, BC ==
[2023-06-25 15:47] LABS: HCT 28.8 % (37.2-46.3); HGB 9.4 g/dL (12.0-15.0); MCH 33.7 pg (27.0-32.0); MCHC 32.6 g/dL (32.0-37.0); MCV 103.2 FL (80.0-97.0); Mean Platelet Volume 9.8 FL (9.5-12.2); Platelet Count 191 X 10*3/uL (140-440); RBC 2.79 X 10*6/uL (4.10-5.20); RDW 13.4 % (11.5-14.5); WBC 4.69 X 10*3/uL (4.50-10.00)
[2023-06-25 15:48] LABS: Basophils # (A) 0.02 X 10*3/uL (0.00-0.10); Basophils % (A) 0.4 %; Eosinophils # (A) 0.14 X 10*3/uL (0.04-0.35); Lymphocytes # (A) 1.91 X 10*3/uL (0.90-5.00); Lymphocytes % (A) 40.7 %; Monocytes # (A) 0.49 X 10*3/uL (0.20-1.00); Monocytes % (A) 10.4 %; NRBC Per 100 WBC 0 X 10*3/uL (0.00-0.01); Neutrophils # (A) 2.12 X 10*3/uL (1.80-7.70); Neutrophils % (A) 45.3 %
[2023-06-25 16:29] LABS: % Iron Saturation 34.82 (12.00-45.00); Albumin 4.6 g/dL (3.8-4.9); BUN/Creat Ratio 20.59 Ratio (12.00-20.00); Blood Urea Nitrogen 65.9 mg/dL (9.0-27.0); Calcium 9.5 mg/dL (8.7-10.3); Carbon Dioxide 20.6 mmol/L (21.6-31.8); Chloride 105 mmol/L (96-109); Glucose 101 mg/dL (70-110); Iron 117 UG/DL (50-170); Magnesium 2.4 mg/dL (1.5-2.4); Phosphorus 4.1 mg/dL (2.4-5.1); Potassium 4.3 mmol/L (3.5-5.5); Sodium 140 mmol/L (135-145); Total Iron Binding Capacity 336 UG/DL (228-460)
== END | disposition home or self-care (01) ==
LOC: LABWHC1 09:26
PROVIDERS: ATTEND Internal Medicine Nephrology
DX: N25.81 Secondary hyperparathyroidism of renal origin (principal); N18.4 Chronic kidney disease, stage 4 (severe); D63.1 Anemia in chronic kidney disease; E55.9 Vitamin D deficiency, unspecified
CPT/HCPCS: 36415; 80048; 82040; 82306; 82728; 83540; 83550; 83735; 83970; 84100; 85025

== ENCOUNTER → 2023-06-28 | Outpatient (CLI) | payer MEDICARE, BC ==
--- NOTE | 2023-07-01 05:25 | MR ---
EXAMINATION TYPE: MR cspine/lspine wo con DATE OF EXAM: 06/28/2023 COMPARISON: MRI cervical and lumbar spine August 03, 2021 HISTORY: Neck pain into left side, low back pain into left lower extremity. Lumbar region radiculopat hy. Spondylolisthesis lumbar spine, spinal stenosis, intervertebral disc degeneration, and scoliosis. Headache, cervicalgia, cervical disc degeneration C4-C5 and C5-C6 and spondylosis per order. TECHNIQUE: Multiplanar, multisequence imaging of the cervical and lumbar spine are performed without IV contrast. FINDINGS: C-SPINE: Sagittal images of the cervical spine show the craniocervical junction to remain within normal limits . The cervical and upper thoracic spinal cord remains normal in course, caliber, and signal. Stable slight grade 1 anterolisthesis C3 on C4 and more prominent grade 1 retrolisthesis C4 on C5 and to les ser degree C5 on C6. The vertebral body heights remain normal. Persistent heterogeneous mild/moderat e disc space narrowing and spurring C3-C4 through C5-C6 levels with some heterogeneous Modic type II endplate changes. Axial images at C2-C3 level remain within normal limits. Axial images at C3-C4 level demonstrates spondylolisthesis with posterior spur disc complex mildly ef facing the anterior thecal sac and causing asymmetric mild right-sided neural foraminal narrowing. Fi ndings similar to prior. Axial images at C4-C5 level show spondylolisthesis with left paracentral disc protrusion effacing the anterior thecal sac nearly up to the ventral surface of the spinal cord which is slightly flattened and uncovertebral facet degenerative changes causing mild to moderate right greater than left bilater al neural foraminal narrowing. Findings slightly more prominent versus prior. Axial images at C5-C6 level shows some uncovertebral facet degenerative change causing minimal bilate ral neural foraminal narrowing. No significant change from prior. Axial images at C6-C7 and C7-T1 levels remain within normal limits. IMPRESSION: Multilevel spondylolisthesis and degenerative change in the upper to mid cervical spine a s detailed above. Findings most prominent at C4-C5 level with some interval degenerative progression from 2021 MRI noted. L-SPINE: Sagittal images of the lumbar spine show vertebral body heights tube remain satisfactory. Persistent dextroconvex scoliosis centered at L2-L3 level. Multilevel spondylolisthesis redemonstrated with grad e 1 retrolisthesis L1 on L2 and L2 on L3 and grade 1 anterolisthesis L3 on L4 along with grade 1 retr olisthesis L4 on L5. Multilevel disc desiccation with moderate to advanced disc space narrowing at L4 -L5 level with heterogeneous Modic type I endplate changes noted. Conus medullaris remains normal in position and signal ending at inferior T12 level. Moderate to severe multilevel anterior spurring is redemonstrated. Axial images show T12-L1 level to remain within normal limits. Axial images at L1-L2 level show mild/moderate broad-based disc bulge mildly effaces the anterior the pilar sac along with mild facet arthropathy and ligamentum flavum hypertrophy effacing left posterior l ateral thecal sac. Bilateral neural foramen are patent. Axial images at L2-L3 level shows moderate broad-based disc bulge mildly effacing the anterior thecal sac and moderate facet arthropathy bilaterally effacing posterior lateral thecal sac. There is mild- to-moderate bilateral neural foraminal narrowing. No significant change from prior. Axial images at L3-L4 level with spondylolisthesis with moderate broad-based posterior disc protrusio n effacing the anterior thecal sac. There is moderate facet arthropathy and ligament flavum hypertrop hy fixing the posterior lateral thecal sac. Spinal canal stenosis remains present on axial image 13 s imilar to prior. There is moderate to severe bilateral neural foraminal narrowing redemonstrated. Axial images at L4-L5 level redemonstrates spondylolisthesis with moderate facet arthropathy and liga mentum flavum hypertrophy bilaterally. There is some effacement of the left posterior lateral thecal sac. There is moderate broad-based posterior disc protrusion mildly effacing the anterior thecal sac. There is mild/moderate bilateral neural foraminal narrowing redemonstrated. No significant change fr om prior. Axial images at L5-S1 level demonstrates mild to moderate facet arthropathy bilaterally. Spinal canal is preserved. Bilateral neural foramina are patent. There are multiple thin-walled cysts of varying size and shape scattered throughout the bilateral kid neys redemonstrated. IMPRESSION: Scoliosis with Multilevel spondylolisthesis and degenerative change in the lumbar spine m ost prominent at the L3-L4 level redemonstrated. Findings appear similar to most recent prior MRI.
== END | disposition home or self-care (01) ==
LOC: RADMRIMAIN 14:19
PROVIDERS: ATTEND Orthopaedic Surgery Orthopaedic Surgery of the Spine
DX: M50.321 Other cervical disc degeneration at C4-C5 level (principal); M43.19 Spondylolisthesis, multiple sites in spine; M47.26 Other spondylosis with radiculopathy, lumbar region; M47.817 Spondylosis without myelopathy or radiculopathy, lumbosacral region; M51.16 Intervertebral disc disorders with radiculopathy, lumbar region; M47.812 Spondylosis without myelopathy or radiculopathy, cervical region
CPT/HCPCS: 72141; 72148

== ENCOUNTER → 2023-06-30 | Outpatient (CLI) | payer MEDICARE, BC ==
[2023-06-30 13:41] VITALS: BP 150/76; PULSE 98; RESP 16; TEMP 97.1
--- NOTE | 2023-06-30 13:51 | P.PAINPG ---
PQRS Measure Charge Sheet Comment: HISTORY OF PRESENT ILLNESS: A 82 yr old female as a referral from Dr Wright presents today w severe and chronic LBP > 1 yr secondary to DDD, spondylosis and facet arthropathy without myelopathy for evaluation. Pt states pain level is provoked at 6 /10 in intensity, constant, localized in the lower lumbar spine, predominantly axial, achy in character w occasional shooting pain towards the LEs. Pain is provoked by lifting. Pain is alleviated by physician guided exercises daily since May 2023, medications (Lyrica), repositioning and rest. Oswestry axial pain score at 26. Pt states she has tremors ever since she started Lyrica (and Neurontin prior to Lyrica) and would like medication to wean off of Lyrica to see if her tremors resolve. PMH: OA, HTN, CKD PSH: Appendectomy, Hysterectomy, Tonsillectomy SH: Former tobacco user, No ETOH abuse, No illicit drug use FH: Non contributory All: See list Meds: See list REVIEW OF ORGAN SYSTEMS: CONSTITUTIONAL: No fevers or chills. No recent weight loss. NEUROLOGICAL: + numbness and tingling along the distal extremities. No seizure disorders or headaches. MUSCULOSKELETAL: + pain PSYCHIATRIC: Denies current depression or suicidal thoughts. Physical Examinations : Constitutional : Cooperative , not in acute distress . Neurologic : Cranial nerve II to XII intact. No focal neurological deficits. Psychiatric : alert & oriented x 3. Matching mood & appropriate affect. Judgment & insight intact. Musculoskeletal : Cervical Spine Motor strength in the deltoid and biceps: Normal right side. Normal Left side Motor strength biceps and the wrist extensors: Normal right side . Normal left side Motor strength in the triceps muscle: Normal right side. Normal left side Deep tendon reflexes: Normal at the biceps. Normal at Brachioradialis. Normal at triceps Vertebral body tenderness to deep palpation over Cervical facet loading test: positive bilaterally Spurling test: positive bilaterally Neck distraction test: positive bilaterally Truman sign: positive bilaterally Lumbar spine Motor strength lower extremities ,thigh and legs 5/5 Right side , 5/5 Left side Deep tendon reflexes : Normal Knee Jerk. Normal Ankle Jerk Vertebral body tenderness over Knowles Test positive Lumbar facet Loading Test: positive Right / positive Left Range of motion of the lumbar spine Flexion 30 degrees, extension 10 degrees Straight Leg Raise test: Left/ Right positive at degrees Brenna test: positive right / positive left. Severe tenderness over the Sacroiliac joint on the Right / Left sides Gaenslen test: positive bilaterally Seated flexion test: positive bilaterally. Sacral spine : Severe tenderness over the Sacroiliac joint: right side / left side Range of motion: Flexion of the lumbar spine <60 degrees Range of motion: Extension of the lumbar spine <20 degrees Gaenslen's Test positive Brenna test: positive right side / left side Thigh Thrust Test Sacral Thrust Test Imaging: Lumbar x ray reviewed MRI lumbar spine pending Assessment/ Plan : Lumbar DDD Recommendation of medication management Lidoderm 5% #30 w 1 RF. Use, side effects, adverse reactions, safe storage discussed. All questions answered. I have spent greater than 30 minutes on patient care today. Dr Bermudez was available by phone for the evaluation of this patient. The time was used to review the medical records including relevant urine studies and Prescription history (MAPs), review of the available imaging, evaluation and examination of the patient, coordination of care with the medical staff and if applicable referring physicians, as well as creation of the medical record - Pain Location Left Lower Back Non-Pharmacological Interventions: Heat, Ice, Inactivity, Physical Therapy, Position/Reposition Pharmacological Interventions: PRN Medication, Topical Medication PQRS Narrative: Smoking Status Never smoker Home Medications: Ambulatory Orders ALPRAZolam [Xanax] 0.25 mg PO Q8HR 09/26/14 Losartan [Cozaar] 25 mg PO DAILY 07/05/21 Pregabalin [Lyrica] 25 mg PO BID 06/30/23 Controlled Substance Measures - Controlled Substance Measures Is patient prescribed a controlled substance at discharge?: No
== END ==
LOC: PNWHC3 12:34
PROVIDERS: ATTEND Specialist
DX: M54.2 Cervicalgia (principal); M51.16 Intervertebral disc disorders with radiculopathy, lumbar region; Z87.891 Personal history of nicotine dependence
CPT/HCPCS: 99211

== ENCOUNTER → 2023-07-23 | Outpatient (CLI) | payer MEDICARE, BC ==
[2023-07-23 14:27] LABS: Basophils # (A) 0.03 X 10*3/uL (0.00-0.10); Basophils % (A) 0.7 %; Eosinophils # (A) 0.12 X 10*3/uL (0.04-0.35); Eosinophils % (A) 2.7 %; HCT 27.9 % (37.2-46.3); HGB 9.1 g/dL (12.0-15.0); Immature Grans, Automated 0 %; Lymphocytes # (A) 1.83 X 10*3/uL (0.90-5.00); Lymphocytes % (A) 40.5 %; MCH 33.7 pg (27.0-32.0); MCHC 32.6 g/dL (32.0-37.0); MCV 103.3 FL (80.0-97.0); Mean Platelet Volume 10.4 FL (9.5-12.2); Monocytes # (A) 0.38 X 10*3/uL (0.20-1.00); Monocytes % (A) 8.4 %; NRBC Per 100 WBC 0 X 10*3/uL (0.00-0.01); Neutrophils # (A) 2.16 X 10*3/uL (1.80-7.70); Neutrophils % (A) 47.7 %; Platelet Count 176 X 10*3/uL (140-440); RDW 12.9 % (11.5-14.5); WBC 4.52 X 10*3/uL (4.50-10.00)
[2023-07-23 15:02] LABS: BUN/Creat Ratio 14.67 Ratio (12.00-20.00); Blood Urea Nitrogen 48.4 mg/dL (9.0-27.0); Carbon Dioxide 20.5 mmol/L (21.6-31.8); Chloride 108 mmol/L (96-109); Glucose 95 mg/dL (70-110); Potassium 3.8 mmol/L (3.5-5.5); Sodium 143 mmol/L (135-145)
[2023-07-23 15:03] LABS: Albumin 4.7 g/dL (3.8-4.9); T4, Free (Free Thyroxine) 1.15 ng/dL (0.80-1.80)
== END | disposition home or self-care (01) ==
LOC: LABWHC1 07:57
PROVIDERS: ATTEND Internal Medicine Nephrology
DX: N18.4 Chronic kidney disease, stage 4 (severe) (principal); D63.1 Anemia in chronic kidney disease; R94.6 Abnormal results of thyroid function studies
CPT/HCPCS: 36415; 80048; 82040; 84439; 84443; 85025

== ENCOUNTER 2023-08-11 10:44 | Day surgery (SDC) | payer MEDICARE, BC ==
[2023-08-07 12:18] VITALS: BMI 18.1
--- NOTE | 2023-08-11 09:24 | P.GSHP ---
History of Present Illness H&P Date: 08/11/23 Chief Complaint: Renal failure 82-year-old female here for dialysis catheter insertion. Patient has had gradual decline in her kidney function. She would like to avoid hemodialysis. No known hernias. Only abdominal surgery hysterectomy and appendectomy. Past Medical History Past Medical History: Hyperlipidemia, Hypertension, Renal Disease Additional Past Medical History / Comment(s): Kidney disease started in 2016. 2023 now dx. with renal disease. History of Any Multi-Drug Resistant Organisms: None Reported Past Surgical History: Appendectomy, Hysterectomy, Tonsillectomy Past Anesthesia/Blood Transfusion Reactions: No Reported Reaction Smoking Status: Former smoker - Past Family History Mother Family Medical History: Cancer Additional Family Medical History / Comment(s): Lymphoma. Father Family Medical History: Cancer Additional Family Medical History / Comment(s): Bone Medications and Allergies Home Medications Medication Instructions Recorded Confirmed Type Losartan [Cozaar] 25 mg PO DAILY 07/05/21 08/07/23 History Pregabalin [Lyrica] 25 mg PO HS 06/30/23 08/07/23 History Cetirizine HCl [Zyrtec] 5 mg PO DAILY 08/07/23 08/07/23 History Ferrous Sulfate [Feosol] 325 mg PO DAILY 08/07/23 08/07/23 History Stevenson-3 Fatty Acids/Fish Oil 1 each PO DAILY 08/07/23 08/07/23 History [Stevenson-3 Fish Oil 1,200 mg Sfgl] Rosuvastatin [Crestor] 5 mg PO HS 08/07/23 08/07/23 History Sodium Bicarbonate Tab 650 mg PO BID 08/07/23 08/07/23 History Ubidecarenone [Co Q-10] 30 mg PO DAILY 08/07/23 08/07/23 History Vit C/Ascorb Sod/Multivit-Min 500 mg PO DAILY 08/07/23 08/07/23 History [Emergen-C 500 mg Chewable Tab] Zinc Glycinate [Zinc] 7.5 mg PO DAILY 08/07/23 08/07/23 History Allergies Allergy/AdvReac Type Severity Reaction Status Date / Time No Known Allergies Allergy Verified 08/07/23 11:05 Surgical - Exam Physical exam: General: Well-developed, well-nourished HEENT: Normocephalic, sclerae nonicteric Abdomen: Nontender, nondistended Extremities: No edema Neuro: Alert and oriented Assessment and Plan (1) Renal failure Narrative/Plan: 82-year-old female with renal failure. Will proceed with peritoneal dialysis catheter insertion at this time. Risks of bleeding, infection, poor function, fluid leak, hernia, peritonitis, bowel injury discussed. She understands and wishes to proceed. Status: Acute Code(s): N19 - UNSPECIFIED KIDNEY FAILURE SNOMED Code(s): 00583031
[~2023-08-11 10:44] MED LIST: HYDROmorphone 0.5 MG/0.5 ML SYRINGE IVP PRN; LACTATED RINGERS 1,000 ML IV SCH; LIDOCAINE 1% (10MG/ML) FOR IV START INTRADERMA PRN; MIDAZOLAM 2 MG/2 ML VIAL IV PRN; fentaNYL (PF) 50 MCG/ML 2 ML AMP IVP PRN
[2023-08-11] MEDS: SODIUM CHLORIDE 0.9% 1,000 ML BAG IV STA (11:37)
[2023-08-11] MEDS: ONDANSETRON 4 MG/2 ML VIAL IVP ONE (11:37)
[2023-08-11] MEDS: HEPARIN SODIUM,PORCINE 5,000 UNIT/ML 1 ML VIAL SQ PRN (11:38)
[2023-08-11] MEDS: ACETAMINOPHEN TAB 500 MG TAB PO PRN (11:38)
[2023-08-11] MEDS: DEXAMETHASONE SOD PHOSPHATE 4 MG/ML 1 ML VIAL IV ONE (11:38)
[2023-08-11] MEDS: IV FLUID CONTINUATION 1,000 ML IV ONE (11:42)
[2023-08-11] MEDS: BUPIVACAINE (PF) 0.25% 30 ML VIAL SQ ONE (12:25)
[2023-08-11] MEDS ORDERED: fentaNYL (PF) 50 MCG/ML 2 ML AMP ONE (12:25)
[2023-08-11] MEDS: MINERAL OIL 1 APPLIC/ML OIL MISCELLANE ONE (12:25)
[2023-08-11] MEDS ORDERED: LIDOCAINE 1% INJ 10MG/ML (20 ML MDV) ONE (12:25)
[2023-08-11] MEDS ORDERED: PROPOFOL 10 MG/ML 20 ML VIAL IV ONE (12:25)
[2023-08-11] MEDS ORDERED: HYDROmorphone 0.5 MG/0.5 ML SYRINGE IVP PRN (13:19)
[2023-08-11] MEDS ORDERED: ACETAMINOPHEN TAB 325 MG TAB PO PRN (13:19)
[2023-08-11] MEDS ORDERED: HYDROcodone/APAP 5-325MG 1 EACH TAB PO PRN (13:19)
[2023-08-11] MEDS ORDERED: NALOXONE 0.4 MG/ML 1 ML VIAL IV PRN (13:19)
--- NOTE | 2023-08-11 13:22 | P.OP ---
Date of Procedure: 08/11/23 Procedure(s) Performed: PREOPERATIVE DIAGNOSIS: Renal failure POSTOPERATIVE DIAGNOSIS: Same PROCEDURE: Peritoneal dialysis catheter insertion SURGEON: Doris EBL: Minimal ANESTHESIA: Sedation plus local COMPLICATIONS: None OPERATIVE PROCEDURE: The patient was placed in the operative table in the supine position. The abdomen was prepped and draped in usual sterile fashion. A small vertical incision was made in the left periumbilical location. Dissection down through the subcutaneous tissues took place using electrocautery. The anterior rectus was divided vertically using the scalpel. The rectus was bluntly. The posterior rectus was visualized. An 0 Vicryl pursestring was placed. A small opening in the posterior rectus fascia and peritoneum took place using a Metzenbaum scissors. There were no adhesions to the suture that was placed. The pigtail catheter was advanced into the pelvis over a stylette. No resistance was met. The inner cuff was secured to the fascia using the 0 Vicryl pursestring that was placed. The catheter was tunneled to an exit site in the left lateral lower quadrant. The catheter was connected to the 1 L bag of saline and approximated 800 mL of saline was easily introduced into the peritoneal cavity. The fluid was then allowed to evacuate. The majority of the fluid was returned. The anterior rectus fascia was then reapproximated using a running 0 Vicryl stitch. The subcutaneous tissues reprepped using 3-0 Vicryl sutures and the skin using 4-0 Monocryl sutures. The outpatient dialysis adapter was applied to the end of the catheter. Sterile dressings were then applied after skin glue was placed over the incision. DISPOSITION: Stable to recovery room
[2023-08-11 13:28] VITALS: TEMP 96.9
[2023-08-11] MEDS: HYDROcodone/APAP 5-325MG 1 EACH TAB PO ONE (14:15)
[2023-08-11 15:17] VITALS: BP 151/75; PULSE 77; RESP 18
== END 2023-08-11 15:14 | disposition home or self-care (01) ==
LOC: OR 10:44
PROVIDERS: ATTEND Surgery
DX: I12.9 Hypertensive chronic kidney disease with stage 1 through stage 4 chronic kidney disease, or unspecified chronic kidney disease (principal); N18.9 Chronic kidney disease, unspecified; D64.9 Anemia, unspecified; E78.5 Hyperlipidemia, unspecified; Z87.891 Personal history of nicotine dependence; Z90.49 Acquired absence of other specified parts of digestive tract; Z79.899 Other long term (current) drug therapy; Z90.710 Acquired absence of both cervix and uterus
CPT/HCPCS: 49421; C1752; J1644; J1100; J0690; J2405; J2001; J3010; J2704; J0665

== ENCOUNTER → 2023-09-18 | Outpatient (CLI) | payer MEDICARE, BC ==
--- NOTE | 2023-09-20 14:17 | XR ---
EXAMINATION TYPE: XR abdomen 2V DATE OF EXAM: 09/18/2023 COMPARISON: None INDICATION: Intraperitoneal dialysis catheter placement TECHNIQUE: Single view abdomen upright view FINDINGS: Nonspecific bowel gas is present. Note is made of vascular calcification through the aorta. Psoas margins are normal. No organomegaly is present. Scoliosis is within the lumbar spine. There is a coiled catheter within the right hemipelvis. IMPRESSION: 1. Placement of an intraperitoneal dialysis catheter right hemipelvis.
== END | disposition home or self-care (01) ==
LOC: RADXRMAIN 12:58
PROVIDERS: ATTEND Internal Medicine Nephrology
DX: T85.621A Displacement of intraperitoneal dialysis catheter, initial encounter (principal)
CPT/HCPCS: 74019

== ENCOUNTER 2023-10-08 14:50 | Emergency (ER) | payer MEDICARE, BC ==
[2023-10-08 14:59] VITALS: RESP 16
--- NOTE | 2023-10-08 15:01 | ED ---
Chest Pain HPI - General Source: patient, RN notes reviewed Mode of arrival: ambulatory Limitations: no limitations <Yamila Schmidt - Last Filed: 10/08/23 14:59> <Do Aragon - Last Filed: 10/09/23 17:09> - General Chief Complaint: Chest Pain Stated Complaint: chest pain Time Seen by Provider: 10/08/23 14:59 - History of Present Illness Initial Comments: Quick Note: This is an 83-year-old female who presents to the emergency department for chest pain. States that it started last night. She initially had pain in the right arm that she thought may be coming from her neck. She tried taking Tylenol and symptoms seemed to improve before going to bed. However when she woke up this morning the pain returned and she then started having pain in the left arm. Denies any shortness of breath. Also denies any history of heart attacks. She is on peritoneal dialysis. (Yamila Schmidt) 83-year-old female presents emergency department for chest pain. States that it woke her during the middle of the night. The pain is in between the shoulder blades. She thought it was due to how she was laying. She got up and took some Tylenol. The pain eventually went away but she ended up having another episode this morning. The pain is now located in the left side of her neck with radiat ion into the left arm. There is some tenderness to palpation of this region. She denies any shortness of breath. No nausea or vomiting. She has no history of any cardiac disease. She is recently new to dialysis. Denies any weight gain. No history of PE or DVT PE. No missed sessions of dialysis. No calf pain or swelling. No other alleviating, precipitating or modifying factors (Do Aragon) - Related Data Home Medications Medication Instructions Recorded Confirmed Losartan [Cozaar] 25 mg PO DAILY PRN 07/05/21 10/08/23 Ferrous Sulfate [Feosol] 325 mg PO DAILY 08/07/23 10/08/23 Sodium Bicarbonate Tab 1,300 mg PO BID 08/07/23 10/08/23 Ascorbic Acid [Vitamin C] 500 mg PO DAILY 10/08/23 10/08/23 Co Q-10 100mg 100 mg PO DAILY 10/08/23 10/08/23 Fish Oil 1360mg 1,360 mg PO Q2D 10/08/23 10/08/23 Furosemide [Lasix] 40 mg PO DAILY PRN 10/08/23 10/08/23 Lactulose [Cephulac] 10 gm PO BID PRN 10/08/23 10/08/23 Methoxy Peg-Epoetin Beta [Mircera] 50 mcg IV Q30D 10/08/23 10/08/23 Rosuvastatin Calcium [Crestor] 5 mg PO HS 10/08/23 10/08/23 Vitamin B Complex 1 cap PO DAILY 10/08/23 10/08/23 Zinc Gluconate [Zinc] 50 mg PO DAILY 10/08/23 10/08/23 Allergies Allergy/AdvReac Type Severity Reaction Status Date / Time No Known Allergies Allergy Verified 10/08/23 14:59 Review of Systems ROS Other: All systems not noted in ROS Statement are negative. <Yamila Schmidt - Last Filed: 10/08/23 14:59> ROS Other: All systems not noted in ROS Statement are negative. <Do Aragon - Last Filed: 10/09/23 17:09> ROS Statement: Those systems with pertinent positive or pertinent negative responses have been documented in the HPI. Past Medical History Past Medical History: Hypertension, Renal Disease Additional Past Medical History / Comment(s): peritoneal dialysis History of Any Multi-Drug Resistant Organisms: None Reported Past Surgical History: Appendectomy, Hysterectomy, Tonsillectomy Past Anesthesia/Blood Transfusion Reactions: No Reported Reaction Past Psychological History: No Psychological Hx Reported Smoking Status: Former smoker <Yamila Schmidt - Last Filed: 10/08/23 14:59> General Exam Limitations: no limitations <Yamila Schmidt - Last Filed: 10/08/23 14:59> General appearance: alert, in no apparent distress Head exam: Present: atraumatic, normocephalic, normal inspection Eye exam: Present: normal appearance, PERRL, EOMI. Absent: scleral icterus, conjunctival injection, periorbital swelling ENT exam: Present: normal exam, mucous membranes moist Neck exam: Present: normal inspection, tenderness (Mild tenderness to palpation of the left trapezius muscle). Absent: meningismus, lymphadenopathy Respiratory exam: Present: normal lung sounds bilaterally. Absent: respiratory distress, wheezes, rales, rhonchi, stridor Cardiovascular Exam: Present: regular rate, normal rhythm, normal heart sounds. Absent: systolic murmur, diastolic murmur, rubs, gallop, clicks GI/Abdominal exam: Present: soft, normal bowel sounds. Absent: distended, tenderness, guarding, rebound, rigid Extremities exam: Present: normal inspection, full ROM, normal capillary refill. Absent: tenderness, pedal edema, joint swelling, calf tenderness Back exam: Present: normal inspection Neurological exam: Present: alert, oriented X3, CN II-XII intact Psychiatric exam: Present: normal affect, normal mood Skin exam: Present: warm, dry, intact, normal color. Absent: rash <Do Aragon - Last Filed: 10/09/23 17:09> - General Exam Comments Initial Comments: Visual Physical Exam Vital signs reviewed General: Well-appearing, nontoxic, no acute distress. Head: Normocephalic, atraumatic Eyes: PERRLA, EOMI ENT: Airway patent Chest: Nonlabored breathing Skin: No visual rash, normal skin tone Neuro: Alert and oriented 3 Musculoskeletal: No gross abnormalities (Yamila Schmidt) Course Vital Signs 10/08/23 10/08/23 10/08/23 14:55 18:07 19:39 Temperature 97.4 F L 97.9 F Pulse Rate 82 72 71 Respiratory 16 16 16 Rate Blood Pressure 145/69 160/87 140/83 O2 Sat by Pulse 100 99 97 Oximetry Chest Pain [facility] <Yamila Schmidt - Last Filed: 10/08/23 14:59> <Do Aragon - Last Filed: 10/09/23 17:09> - [facility] I performed the QuickNote portion of this chart. Signed Yamila Schmidt PA-C. (Yamila Schmidt) Was pt. sent in by a medical professional or institution (MAAME Montiel, ASSOCIATE RELATIONS SPECIALIST, urgent care, hospital, or chcf...) When possible be specific @ -No Did you speak to anyone other than the patient for history (EMS, parent, family, police, friend...)? What history was obtained from this source @ -I spoke with the patient's daughter for history Did you review nursing and triage notes (agree or disagree)? Why? @ -I reviewed and agree with nursing and triage notes Were old charts reviewed (outside hosp., previous admission, EMS record, old EKG, old radiological studies, urgent care reports/EKG's, ch[facility] records)? Report findings @ -No old charts were reviewed Differential Diagnosis (chest pain, altered mental status, abdominal pain women, abdominal pain men, vaginal bleeding, weakness, fever, dyspnea, syncope, headache, dizziness, GI bleed, back pain, seizure, CVA, palpatations, mental health, musculoskeletal)? @ -Differential Chest Pain: Stable Angina, Unstable Angina, STEMI, NSTEMI Aortic Dissection, Pneumothorax, Musculoskeletal, Esophageal Spasm GERD, Cholecystitis, Pancreatitis, Zoster, this is not meant to be an all-inclusive list. EKG interpreted by me (3pts min.). @ -Yes and demonstrates sinus rhythm with a rate of 77. [place] interval 150. QRS 76. QTc of 426. No acute ST segment elevations or depressions X-rays interpreted by me (1pt min.). @ -Yes and demonstrates no acute process CT interpreted by me (1pt min.). @ -None done U/S interpreted by me (1pt. min.). @ -None done What testing was considered but not performed or refused? (CT, X-rays, U/S, labs)? Why? @ -None What meds were considered but not given or refused? Why? @ -None Did you discuss the management of the patient with other professionals (professionals i.e. , PA, ASSOCIATE RELATIONS SPECIALIST, lab, RT, psych nurse, social scientist, clock repairer, teacher, disability liaison officer, rn field case manager)? Give summary @ -Spoke with Dr. Wright will follow-up with the patient in office Was smoking cessation discussed for >3mins.? @ -No Was critical care preformed (if so, how long)? @ -No Were there social determinants of health that impacted care today? How? (Homelessness, low income, unemployed, alcoholism, drug addiction, transportation, low edu. Level, literacy, decrease access to med. care, [place] [facility], rehab)? @ -No Was there de-escalation of care discussed even if they declined (Discuss DNR or withdrawal of care, Hospice)? DNR status @ -No What co-morbidities impacted this encounter? (DM, HTN, Smoking, COPD, CAD, Cancer, CVA, ARF, Chemo, Hep., AIDS, mental health diagnosis, sleep apnea, morbid obesity)? @ -End-stage renal disease on peritoneal dialysis Was patient admitted / discharged? Hospital course, mention meds given and rou te, prescriptions, significant lab abnormalities, going to OR and other pertinent info. @ -Upon arrival patient seen and evaluated in room 17. Thorough history and physical exam was performed. IV access was established and laboratory studies are conducted. Patient is pain-free at this time. Twelve-lead EKG was completed. Patient remains on the alarm security or surveillance monitor. She has no pain throughout her stay. I did obtain laboratory studies which demonstrated negative troponin. I discussed the results with the patient and the limitations. I recommended admission for further testing. Patient declines admission. She is aware of the limitations of the current testing that was performed and the risks associated with leaving without further testing. These risks include permanent disability and even . I did touch base with Dr. Wright, the primary care physician. Notified him that the patient wants to go home. He will follow-up with the patient in the outpatient setting. Patient is asked to return for any new or worsening symptoms Undiagnosed new problem with uncertain prognosis? @ -Yes Drug Therapy requiring intensive monitoring for toxicity (Heparin, Nitro, Insulin, Cardizem)? @ -No Were any procedures done? @ -No Diagnosis/symptom? @ -Acute chest pain, possible ACS Acute, or Chronic, or Acute on Chronic? @ -Acute Uncomplicated (without systemic symptoms) or Complicated (systemic symptoms)? @ -Complicated Side effects of treatment? @ -No Exacerbation, Progression, or Severe Exacerbation? @ -No Poses a threat to life or bodily function? How? (Chest pain, [place], [place], pneumonia, PE, COPD, DKA, ARF, appy, cholecystitis, CVA, Diverticulitis, Homicidal, Suicidal, threat to staff... and all critical care pts) @ -No (Do Aragon) Disposition <Yamila Schmidt - Last Filed: 10/08/23 14:59> Is patient prescribed a controlled substance at d/c from ED?: No Time of Disposition: 19:24 <Do Aragon - Last Filed: 10/09/23 17:09> Clinical Impression: Chest pain Disposition: HOME SELF-CARE Condition: Stable Instructions (If sedation given, give patient instructions): Chest Pain (ED) Additional Instructions: Please follow-up with Dr. Wright for further workup of your symptoms. Return for any new or worsening symptoms Referrals: Ector Wright MD [Primary Care Provider] - 1-2 days
[2023-10-08 15:37] LABS: Basophils % (A) 1 %; Eosinophils # (A) 0.1 k/uL (0-0.7); Eosinophils % (A) 2 %; HCT 29.5 % (34.0-46.0); HGB 9.8 gm/dL (11.4-16.0); Lymphocytes # (A) 0.9 k/uL (1.0-4.8); Lymphocytes % (A) 22 %; MCH 33.5 pg (25.0-35.0); MCHC 33.2 g/dL (31.0-37.0); MCV 100.9 fL (80.0-100.0); Mean Platelet Volume 7.7; Monocytes # (A) 0.2 k/uL (0-1.0); Monocytes % (A) 6 %; Neutrophils # (A) 2.6 k/uL (1.3-7.7); Neutrophils % (A) 69 %; Platelet Count 204 k/uL (150-450); RBC 2.92 m/uL (3.80-5.40); RDW 12.3 % (11.5-15.5); WBC 3.9 k/uL (3.8-10.6)
--- NOTE | 2023-10-08 15:42 | XR ---
EXAMINATION TYPE: XR chest 2V DATE OF EXAM: 10/08/2023 3:34 PM CLINICAL INDICATION:Female, 83 years old with history of Chest Pain; [facility] COMPARISON: Chest radiographs from 03/20/2021 TECHNIQUE: XR chest 2V Frontal view of the chest. FINDINGS: Lungs/Pleura: Scattered pleural calcifications are present. There is no evidence of pleural effusion, focal consolidation, or pneumothorax. Pulmonary vascularity: Unremarkable. Heart/mediastinum: Cardiomediastinal silhouette is unremarkable. Musculoskeletal: No acute osseous pathology. IMPRESSION: 1. No acute cardiopulmonary disease process. 2. COPD changes. 3. Pleural calcifications again seen. Correlate for history of asbestos exposure.
[2023-10-08 15:50] LABS: INR 0.9 (<1.2); Partial Thromboplastin Time 22.4 sec (22.0-30.0)
[2023-10-08 15:55] LABS: ALT 14 U/L (4-34); AST 23 U/L (14-36); African American GFR (CKD) 16 (>60 ml/min/1.73 sqM); Albumin 3.8 g/dL (3.5-5.0); Alkaline Phosphatase 51 U/L (38-126); Anion Gap 7 mmol/L; Blood Urea Nitrogen 33 mg/dL (7-17); Calcium 9.2 mg/dL (8.4-10.2); Carbon Dioxide 28 mmol/L (22-30); Chloride 103 mmol/L (98-107); Glucose 169 mg/dL (74-99); Non-African American GFR(CKD) 14 (>60 ml/min/1.73 sqM); Potassium 3.4 mmol/L (3.5-5.1); Sodium 138 mmol/L (137-145); Total Bilirubin 0.4 mg/dL (0.2-1.3); Total Protein 5.9 g/dL (6.3-8.2)
[2023-10-08 19:40] VITALS: BP 140/83; PULSE 71; TEMP 97.9
== END 2023-10-08 19:39 | disposition home or self-care (01) ==
LOC: EC 14:50
DX: R07.89 Other chest pain (principal); I12.0 Hypertensive chronic kidney disease with stage 5 chronic kidney disease or end stage renal disease; N18.6 End stage renal disease; Z87.891 Personal history of nicotine dependence; Z99.2 Dependence on renal dialysis
CPT/HCPCS: 36415; 71046; 80053; 83735; 84484; 85025; 85610; 85730; 93005; 99285

== ENCOUNTER → 2023-12-18 | Outpatient (CLI) | payer MEDICARE, BC ==
--- NOTE | 2023-12-18 14:28 | XR ---
EXAMINATION TYPE: XR abdomen 1V DATE OF EXAM: 12/18/2023 HISTORY: Pain. Technique: 2 views of the abdomen are submitted. Comparison: 09/18/2023 Findings: There is no convincing evidence of pneumoperitoneum. Peritoneal dialysis catheter was previously note d within the right hemipelvis and now is located at the right iliac crest. The Bowel gas pattern is nonspecific and nonobstructive. No sizable air-fluid levels are seen. No mass effects are noted. No renal calcifications are identified. IMPRESSION: 1. Nonspecific nonobstructive bowel gas pattern [facility], , 12/18/2023 2:25 PM
== END | disposition home or self-care (01) ==
LOC: RADXRMAIN 13:54
PROVIDERS: ATTEND Internal Medicine Nephrology
DX: T85.621A Displacement of intraperitoneal dialysis catheter, initial encounter (principal)
CPT/HCPCS: 74018

== ENCOUNTER → 2023-12-25 | Outpatient (CLI) | payer MEDICARE, BC ==
--- NOTE | 2023-12-26 22:09 | CT ---
EXAMINATION TYPE: CT abdomen pelvis wo con DATE OF EXAM: 12/25/2023 COMPARISON: 04/30/2022 INDICATION: RUQ abdomen pain and dialysis catheter not draining properly. DLP: 470 mGycm, Automated exposure control for dose reduction was used. CONTRAST: 0 mL of Isovue 300. Study performed without Oral Contrast TECHNIQUE: Axial images were obtained from above the diaphragm to the pubic rami in the axial plane a t 5 mm thick sections. Reconstructed images are reviewed on the computer in the coronal plane. FINDINGS: Limited CT sections are obtained the lung bases. The lung bases are clear. CT ABDOMEN: Peritoneal dialysis catheter enters in the left anterior pelvis. The loops of the distal end located within the right paracolic gutter and right lower quadrant. Liver: Normal Spleen: Normal. Some splenic varices may be present. Pancreas: Normal Adrenal glands: The adrenal glands are normal. Gallbladder: Normal Kidneys: No masses are evident. No hydronephrosis is present. Cyst is on the posterior lateral righ t mid kidney. Additional cyst at the inferior pole right kidney measuring 2.8 cm. No renal stones ar e identified. Some vascular renal calcification may be present in the mid left renal hilum Aorta: Vascular calcification is within the aorta. Inferior vena cava: Normal. CT PELVIS: Loops of bowel within the abdomen and pelvis are normal. This study is without oral contrast limi ting bowel evaluation. Fecal debris is within the colon. Multiple diverticula are within the distal s igmoid colon. Appendix: Normal as visualized. Urinary bladder: Normal. Genitourinary structures: Uterus and ovaries are not identified. Osseous structures: No suspicious lytic or sclerotic lesions. Degenerative changes are throughout the lumbar spine. Lumbar spine is scoliotic. There is loss of disc height and vacuum disc phenomenon at L3-4 L4-5. IMPRESSION: 1. Distal coils of the peritoneal dialysis catheter within the right paracolic gutter right lower qu adrant. 2. Diverticulosis without acute diverticulitis. 3. Renal cysts [facility], Workstation: [facility], 12/26/2023 10:06 PM
== END ==
LOC: RADCTMAIN 15:57
PROVIDERS: ATTEND Surgery
CPT/HCPCS: 74176

== ENCOUNTER 2024-01-02 07:41 | Day surgery (SDC) | payer MEDICARE, BC ==
[~2024-01-02 07:41] MED LIST changes: -LACTATED RINGERS 1,000 ML IV SCH
[2024-01-02] MEDS: LACTATED RINGERS 1,000 ML IV SCH (08:40)
[2024-01-02] MEDS: IV FLUID CONTINUATION 1,000 ML IV ONE (08:40)
[2024-01-02] MEDS: ONDANSETRON 4 MG/2 ML VIAL IVP ONE (08:46)
[2024-01-02] MEDS: DEXAMETHASONE SOD PHOSPHATE 4 MG/ML 1 ML VIAL IV ONE (08:48)
[2024-01-02 09:26] LABS: African American GFR (CKD) 13 (>60 ml/min/1.73 sqM); Anion Gap 11 mmol/L; Blood Urea Nitrogen 50 mg/dL (7-17); Calcium 9.6 mg/dL (8.4-10.2); Carbon Dioxide 17 mmol/L (22-30); Chloride 112 mmol/L (98-107); Glucose 86 mg/dL (74-99); Non-African American GFR(CKD) 11 (>60 ml/min/1.73 sqM); Sodium 140 mmol/L (137-145)
[2024-01-02] MEDS ORDERED: LIDOCAINE 1% INJ 10MG/ML (20 ML MDV) ONE (09:27)
[2024-01-02] MEDS ORDERED: SUCCINYLCHOLINE CHLORIDE 200 MG/10 ML VIAL IV ONE (09:27)
[2024-01-02] MEDS ORDERED: PROPOFOL 10 MG/ML 20 ML VIAL IV ONE (09:27)
[2024-01-02] MEDS ORDERED: PHENYLEPHRINE 10 MG/ML VIAL ONE (09:27)
[2024-01-02] MEDS ORDERED: fentaNYL (PF) 50 MCG/ML 2 ML AMP ONE (09:27)
[2024-01-02] MEDS ORDERED: ROCURONIUM 10 MG/ML (5 ML VIAL) IV ONE (09:27)
[2024-01-02] MEDS ORDERED: SUGAMMADEX SODIUM 200 MG/2 ML SDV IV ONE (09:27)
[2024-01-02] MEDS: BUPIVACAINE (PF) 0.25% 30 ML VIAL SQ ONE (09:50)
[2024-01-02 10:49] VITALS: TEMP 96.8
[2024-01-02] MEDS ORDERED: NALOXONE 0.4 MG/ML 1 ML VIAL IV PRN (10:56)
[2024-01-02] MEDS ORDERED: HYDROcodone/APAP 5-325MG 1 EACH TAB PO PRN (10:56)
[2024-01-02] MEDS: ACETAMINOPHEN IV (For NPO) 1,000 MG in EMPTY BAG 1 BAG IVPB ONE (10:56)
--- NOTE | 2024-01-02 11:02 | P.OP ---
Date of Procedure: 01/02/24 Procedure(s) Performed: PREOPERATIVE DIAGNOSIS: Peritoneal dialysis catheter malfunction POSTOPERATIVE DIAGNOSIS: Same, small left inguinal hernia PROCEDURE: Laparoscopic revision peritoneal dialysis catheter SURGEON: Doris ESTES: 2 cc ANESTHESIA: General COMPLICATIONS: None OPERATIVE PROCEDURE: Patient placed on the operating table in the supine position. She was placed under general anesthesia. The patient's left arm was tucked. The catheter was prepped along with the abdomen in a sterile manner. Patient was draped. A 5 mm optical trocar was used under the abdominal cavity in the left upper quadrant. 2 additional 5 mm trocars were placed lateral and inferior to this. The patient's abdomen was inspected. There was a few small adhesive bands to the inner portion of the catheter these were lysed easily. The catheter was sitting just adjacent to the ascending colon. It was not adhesed there. 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 The catheter was mobile. There was some fibrinous exudate within the catheter lumen you could see. The patient did have a small left inguinal hernia. I took the catheter to the midline. This was then sutured to the peritoneum in the low midline pelvis using an absorbable 2-0 Vicryl stitch. This was relatively loose and tied down using the tie knot device. The catheter was then flushed. There was excellent flow through the catheter and the fibrinous plug was fully removed. The pneumoperitoneum was evacuated. The 3 incision sites were closed using 4-0 Monocryl sutures. Skin glue was then applied. DISPOSITION: Stable to recovery room
[2024-01-02 11:56] VITALS: RESP 18
[2024-01-02 12:11] VITALS: BP 126/60; PULSE 87
== END 2024-01-02 12:53 | disposition home or self-care (01) ==
LOC: OR 07:41
PROVIDERS: ATTEND Surgery
DX: T85.611A Breakdown (mechanical) of intraperitoneal dialysis catheter, initial encounter (principal); K40.90 Unilateral inguinal hernia, without obstruction or gangrene, not specified as recurrent; E78.5 Hyperlipidemia, unspecified; I12.9 Hypertensive chronic kidney disease with stage 1 through stage 4 chronic kidney disease, or unspecified chronic kidney disease; N18.9 Chronic kidney disease, unspecified; Z87.891 Personal history of nicotine dependence; Z79.899 Other long term (current) drug therapy; Z90.49 Acquired absence of other specified parts of digestive tract; Z90.710 Acquired absence of both cervix and uterus; Y83.8 Other surgical procedures as the cause of abnormal reaction of the patient, or of later complication, without mention of misadventure at the time of the procedure
CPT/HCPCS: 80048; 49325; J0330; J1100; J2405; J0690; J2003; J3010; J0131; J2704; J2371; J0665

== ENCOUNTER → 2024-01-19 | Outpatient (CLI) | payer MEDICARE, BC ==
[2024-01-19 16:02] LABS: Chol/HDL Ratio 1.88 Ratio
[2024-01-19 16:03] LABS: LDL Cholesterol,Calculated 65.8 mg/dL (0.0-131.0); T4, Free (Free Thyroxine) 1.07 ng/dL (0.80-1.80)
== END | disposition home or self-care (01) ==
LOC: LABWHC1 09:53
PROVIDERS: ATTEND Internal Medicine Geriatric Medicine
DX: E78.2 Mixed hyperlipidemia (principal); Z13.820 Encounter for screening for osteoporosis; R73.9 Hyperglycemia, unspecified; R94.6 Abnormal results of thyroid function studies
CPT/HCPCS: 36415; 80061; 82306; 83036; 84439; 84443

== ENCOUNTER → 2024-01-30 | Outpatient (CLI) | payer MEDICARE, BC ==
--- NOTE | 2024-01-31 11:05 | BD ---
EXAMINATION TYPE: Axial Bone Density DATE OF EXAM: 01/30/2024 CLINICAL HISTORY: 83 years old Female. ICD-10 CODE: M81.0 AGE RELATED OSTEO , Additional History: Height: 64.5 Weight: 110 FRAX RISK QUESTIONS: Family History (Parent hip fracture): no History of Fracture in Adulthood: no Secondary Osteoporosis: no RISK FACTORS HISTORY OF: Surgery to Spine/Hip(right/left)/Wrist (right/left): no MEDICATIONS: Thyroid Medications: no Osteoporosis Medications: no EXAM MEASUREMENTS: Bone mineral densitometry was performed using the [employer]. Bone mineral density as measured about the Lumbar spine is: ----- L1-L4(G/cm2): 0.971 T Score Values are as follows: ----- L1: -1.7 ----- L2: -2.3 ----- L3: -1.9 ----- L4: -1.2 ----- L1-L4: -1.7 Z Score Values are as follows: ----- L1: 0.7 ----- L2: 0.1 ----- L3: 0.5 ----- L4: 1.2 ----- L1-L4: 0.7 Bone mineral density has: Increased 5.5% since study of: 12/27/2021 Bone mineral density about the R hip (g/cm2): 0.676 Bone mineral density about the L hip (g/cm2): 0.603 T Score values are as follows: -----R Neck: -2.2 -----L Neck: -2.8 -----R Total: -2.6 -----L Total: -3.2 Z Score values are as follows: -----R Neck: 0.4 -----L Neck: -0.2 -----R Total: -0.1 -----L Total: -0.7 Bone mineral density has: Decreased -17.5% since study of: 12/27/2021 FRAX%s: The graph provided illustrates a 18.0% chance for a major osteoporotic fx and a 7.6% chance f or the hips probability for fx in 10 years time. IMPRESSION: Osteoporosis (T Score less than -2.5). There is increased fracture risk and therapy is usually indicated based on age. Re-Screen 1-2 years. NOTE: T-SCORE=SD OF THE YOUNG ADULT MEAN. [facility], , 01/31/2024 11:02 AM
--- NOTE | 2024-02-03 18:02 | MM ---
Reason for Exam: Screening (asymptomatic). Last mammogram was performed 2 year(s) and 1 month(s) ago. Patient History: Menarche at age 13. First Full-Term at age 23. Hysterectomy at age 38. Postmenopausal. Benign Excisional Biopsy on the left side. Risk Values: Sonya 5 year model risk: 1.6%. NCI Lifetime model risk: 2.0%. Prior Study Comparison: 11/12/2016 Bilateral Screening Mammogram, [facility]. 10/16/2018 Bilateral Screening Mammogram, [facility]. 12/27/2021 Bilateral MG 3D screening mammo w/cad, [facility]. Tissue Density: The breasts are heterogeneously dense, which may obscure small masses. Findings: Analyzed By CAD. Unchanged bilateral areas of asymmetric density. There is no suspicious group of microcalcifications or new suspicious mass in either breast. Overall Assessment: Benign, BI-RAD 2 Management: Screening Mammogram of both breasts in 1 year. . Patient should continue monthly self-breast exams. A clinical breast exam by your physician is recommended on an annual basis. This exam should not preclude additional follow-up of suspicious palpable abnormalities. Note on Sonya scores and lifetime risk: 1. A Sonya score greater than 3% is considered moderate risk. If this is the case, consider specialist referral to assess eligibility for a risk reducing agent. 2. If overall lifetime risk for the development of breast cancer is 20% or higher, the patient may qualify for future screening with alternating mammogram and breast MRI. [facility], , 02/03/2024 5:59 PM. Electronically signed and approved by: Danielito Aragon M.D. Radiologist
== END | disposition home or self-care (01) ==
LOC: RADBDWWP 14:49
PROVIDERS: ATTEND Internal Medicine Geriatric Medicine
DX: Z12.31 Encounter for screening mammogram for malignant neoplasm of breast (principal); M81.0 Age-related osteoporosis without current pathological fracture; Z13.820 Encounter for screening for osteoporosis; Z78.0 Asymptomatic menopausal state
CPT/HCPCS: 77063; 77067; 77080

== ENCOUNTER → 2024-09-02 | Outpatient (CLI) | payer MEDICARE, BC ==
--- NOTE | 2024-09-02 15:40 | XR ---
EXAMINATION TYPE: XR abdomen 2V DATE OF EXAM: 09/02/2024 12:23 PM COMPARISON: None. 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 Frontal and lateral projections FINDINGS: Nonspecific bowel gas is present predominantly within the colon. Psoas margins are normal. No organomegaly is present. Degenerative disc changes are within the lumbar spine. Intraperitoneal dialysis catheter is within the anterior right hemipelvis. IMPRESSION: 1. Nonspecific abdomen. 2. Anterior right mid abdomen and peritoneal dialysis catheter [facility], , 09/02/2024 3:38 PM
== END | disposition home or self-care (01) ==
LOC: RADXRMAIN 12:05
PROVIDERS: ATTEND Internal Medicine Nephrology
DX: T85.621A Displacement of intraperitoneal dialysis catheter, initial encounter (principal)
CPT/HCPCS: 74019

== ENCOUNTER 2024-09-07 09:27 | Day surgery (SDC) | payer MEDICARE, BC ==
[2024-09-06 09:22] VITALS: BMI 18.6
[~2024-09-07 09:27] MED LIST changes: -HYDROmorphone 0.5 MG/0.5 ML SYRINGE IVP PRN; -MIDAZOLAM 2 MG/2 ML VIAL IV PRN; +fentaNYL (PF) 50 MCG/ML 2 ML AMP IV PRN; -fentaNYL (PF) 50 MCG/ML 2 ML AMP IVP PRN
[2024-09-07] MEDS: IV FLUID CONTINUATION 1,000 ML IV ONE (10:19)
[2024-09-07] MEDS: DEXAMETHASONE SOD PHOSPHATE 4 MG/ML 1 ML VIAL IV ONE (10:41)
[2024-09-07] MEDS: HEPARIN SODIUM,PORCINE 5,000 UNIT/ML 1 ML VIAL SQ PRN (10:41)
[2024-09-07] MEDS: ACETAMINOPHEN TAB 500 MG TAB PO PRN (10:41)
[2024-09-07] MEDS: ONDANSETRON 4 MG/2 ML VIAL IVP STA (10:42)
[2024-09-07 10:46] LABS: Basophils # (A) 0.03 10*3/uL (0.00-0.10); Basophils % (A) 0.6 %; Eosinophils # (A) 0.06 10*3/uL (0.04-0.35); Eosinophils % (A) 1.2 %; HCT 30.4 % (37.2-46.3); HGB 10.5 g/dL (12.0-15.0); Lymphocytes # (A) 1.04 10*3/uL (0.90-5.00); Lymphocytes % (A) 20.8 %; MCH 33.7 pg (27.0-32.0); MCHC 34.5 g/dL (32.0-37.0); MCV 97.4 fL (80.0-97.0); Monocytes # (A) 0.42 10*3/uL (0.20-1.00); Monocytes % (A) 8.4 %; Neutrophils # (A) 3.44 10*3/uL (1.80-7.70); Neutrophils % (A) 68.8 %; Platelet Count 189 10*3/uL (140-440); RBC 3.12 10*6/uL (4.10-5.20); RDW 12.7 % (11.5-14.5); WBC 5.00 10*3/uL (4.50-10.00)
[2024-09-07] MEDS: LACTATED RINGERS 1,000 ML IV SCH (10:57)
[2024-09-07 10:59] LABS: African American GFR (CKD) 9 (>60 ml/min/1.73 sqM); Anion Gap 14 mmol/L; Blood Urea Nitrogen 49 mg/dL (7-17); Calcium 9.5 mg/dL (8.4-10.2); Carbon Dioxide 23 mmol/L (22-30); Chloride 101 mmol/L (98-107); Glucose 99 mg/dL (74-99); Non-African American GFR(CKD) 8 (>60 ml/min/1.73 sqM); Potassium 3.5 mmol/L (3.5-5.1); Sodium 138 mmol/L (137-145)
--- NOTE | 2024-09-07 11:27 | P.GSHP ---
History of Present Illness H&P Date: 09/07/24 Chief Complaint: Dialysis catheter malfunction 84-year-old female well-known to our service. Patient had previous dialysis catheter placement through a left-sided abdominal approach. In the postop period early she had issues with the catheter draining poorly. She underwent laparoscopic revision with suturing of the catheter to the lower pelvic midline. Unfortunately recently she started having issues again of right lower quadrant pain with poor drainage. X-ray obtained showing the catheter in the right lower quadrant. Here today for revision. Past Medical History Past Medical History: Asthma, Dialysis, Hyperlipidemia, Hypertension, Renal Disease Additional Past Medical History / Comment(s): peritoneal dialysis since August 2023. Was having problems draining CAPD catheter- L lower abd. Seasonal asthma symptoms. History of Any Multi-Drug Resistant Organisms: None Reported Past Surgical History: Appendectomy, Breast Surgery, Hysterectomy, Tonsillectomy Additional Past Surgical History / Comment(s): Benign breast lump removed, peritoneal dialysis catheter insertion 08/31, inserted in different site 12/31. B/L cataract removal Past Anesthesia/Blood Transfusion Reactions: No Reported Reaction Additional Past Anesthesia/Blood Transfusion Reaction / Comment(s): No hx of blood transfusion Smoking Status: Former smoker - Past Family History Mother Family Medical History: Cancer Father Family Medical History: Cancer Sister(s) Family Medical History: Diabetes Mellitus, Renal Disease Additional Family Medical History / Comment(s): another sister- hx of cervical cancer Medications and Allergies Home Medications Medication Instructions Recorded Confirmed Type Losartan [Cozaar] 25 mg PO DAILY PRN 07/05/21 09/07/24 History Furosemide [Lasix] 60 mg PO DAILY PRN 10/08/23 09/07/24 History Rosuvastatin Calcium [Crestor] 5 mg PO HS 10/08/23 09/07/24 History Ergocalciferol [Vitamin D2 (1250 1,250 mcg PO Q14D 09/06/24 09/07/24 History Mcg = [id number] Iu)] Ferrous Sulfate [Feosol] 325 mg PO DAILY 09/06/24 09/07/24 History Latanoprost [Latanoprost 0.005%] 1 drop BOTH EYES HS 09/06/24 09/07/24 History Midodrine HCl 10 mg PO DAILY PRN 09/06/24 09/07/24 History [place]-3/Dha/Epa/Fish Oil [[place]-3 1 each PO DAILY 09/06/24 09/07/24 History Fish Oil 1,000 mg Sfgl] Pantoprazole [Protonix] 40 mg PO BID 09/06/24 09/07/24 History Potassium Chloride [Klor-Con M20] 20 meq PO DAILY 09/06/24 09/07/24 History Pregabalin 25 mg PO BID 09/06/24 09/07/24 History Qunol Supplement 100 mg PO DAILY 09/06/24 09/07/24 History Vit B Comp No.3/Folic/C/Biotin 1 each PO DAILY 09/06/24 09/07/24 History [Linda-Yulia Rx Tablet] Zinc Gluconate [Zinc] 50 mg PO DAILY 09/06/24 09/07/24 History Allergies Allergy/AdvReac Type Severity Reaction Status Date / Time No Known Allergies Allergy Verified 09/07/24 10:28 Surgical - Exam Vital Signs Temp Pulse Resp BP Pulse Ox 97.5 F L 77 16 136/69 100 09/07/24 10:21 09/07/24 10:21 09/07/24 10:21 09/07/24 10:21 09/07/24 10:21 Physical exam: General: Well-developed, well-nourished HEENT: Normocephalic, sclerae nonicteric Abdomen: Nontender, nondistended, dialysis catheter in place Extremities: No edema Neuro: Alert and oriented Results - Labs 09/07/24 10:42 09/07/24 10:42 Abnormal Lab Results - Last 24 Hours (Table) 09/07/24 09/07/24 Range/Units 10:42 10:42 RBC 3.12 L (4.10-5.20) 10*6/uL Hgb 10.5 L (12.0-15.0) g/dL Hct 30.4 L (37.2-46.3) % MCV 97.4 H (80.0-97.0) fL MCH 33.7 H (27.0-32.0) pg BUN 49 H (7-17) mg/dL Creatinine 4.84 H (0.52-1.04) mg/dL Diabetes panel 09/07/24 Range/Units 10:42 Sodium 138 (137-145) mmol/L Potassium 3.5 (3.5-5.1) mmol/L Chloride 101 (98-107) mmol/L Carbon Dioxide 23 (22-30) mmol/L BUN 49 H (7-17) mg/dL Creatinine 4.84 H (0.52-1.04) mg/dL Glucose 99 (74-99) mg/dL Calcium 9.5 (8.4-10.2) mg/dL Calcium panel 09/07/24 Range/Units 10:42 Calcium 9.5 (8.4-10.2) mg/dL Pituitary panel 09/07/24 Range/Units 10:42 Sodium 138 (137-145) mmol/L Potassium 3.5 (3.5-5.1) mmol/L Chloride 101 (98-107) mmol/L Carbon Dioxide 23 (22-30) mmol/L BUN 49 H (7-17) mg/dL Creatinine 4.84 H (0.52-1.04) mg/dL Glucose 99 (74-99) mg/dL Calcium 9.5 (8.4-10.2) mg/dL Adrenal panel 09/07/24 Range/Units 10:42 Sodium 138 (137-145) mmol/L Potassium 3.5 (3.5-5.1) mmol/L Chloride 101 (98-107) mmol/L Carbon Dioxide 23 (22-30) mmol/L BUN 49 H (7-17) mg/dL Creatinine 4.84 H (0.52-1.04) mg/dL Glucose 99 (74-99) mg/dL Calcium 9.5 (8.4-10.2) mg/dL Assessment and Plan (1) Renal failure Narrative/Plan: Will proceed with laparoscopic dialysis catheter revision, possible need for replacement and removal discussed. Risks of bleeding, infection, bowel injury, recurrent port drainage issues. Patient is agreeable and wishes to proceed. Current Visit: No Status: Acute Code(s): N19 - UNSPECIFIED KIDNEY FAILURE SNOMED Code(s): 19633725
[2024-09-07] MEDS ORDERED: PROPOFOL 10 MG/ML 20 ML VIAL IV ONE (11:35)
[2024-09-07] MEDS ORDERED: LIDOCAINE 1% INJ 10MG/ML (20 ML MDV) ONE (11:35)
[2024-09-07] MEDS ORDERED: fentaNYL (PF) 50 MCG/ML 2 ML AMP ONE (11:35)
[2024-09-07] MEDS: BUPIVACAINE (PF) 0.25% 30 ML VIAL SQ ONE (11:58)
[2024-09-07] MEDS ORDERED: NALOXONE 0.4 MG/ML 1 ML VIAL IV PRN (12:33)
[2024-09-07] MEDS ORDERED: ACETAMINOPHEN TAB 325 MG TAB PO PRN (12:33)
--- NOTE | 2024-09-07 12:38 | P.OP ---
Date of Procedure: 09/07/24 Procedure(s) Performed: PREOPERATIVE DIAGNOSIS: Peritoneal dialysis catheter malfunction POSTOPERATIVE DIAGNOSIS: Same PROCEDURE: Laparoscopic revision peritoneal dialysis catheter SURGEON: Doris EBL: 5 cc ANESTHESIA: General COMPLICATIONS: None OPERATIVE PROCEDURE: Patient placed in the supine position. The patient was placed under general anesthesia. Abdomen prepped and draped sterilely. 5 mm optical trocar used to enter the peritoneal cavity in the left upper quadrant. Full insufflation took place to 15 mmHg. 2 additional 5 mm trocars were placed under direct visitation. The patient's previous suturing of the catheter in the low midline was no longer in place. The tie knot was no longer visualized. There was a small adhesive band to the peritoneum and I suspect that is where the catheter previously had been secured. The catheter today was present in the right mid abdomen. Superior to the cecum. It was not adherent to anything over there and was just laying there naturally. This was brought to the midline. Catheter did not have any fibrinous exudate in or around the catheter. The catheter was then secured to the low midline peritoneum using 2 separate 2-0 Ethibond sutures in an interrupted fashion about 2 cm apart from 1 another. In doing the securing of the catheter the peritoneum was grasped on either side of the catheter and sutured to itself using the stitch. This created a nice tunnel of peritoneum for the catheter to live in. This should not significantly affect the ability to remove this with traction later. The pneumoperitoneum was evacuated. The skin incisions were closed using 4-0 Monocryl sutures. Skin glue was applied. DISPOSITION: Stable to recovery room
[2024-09-07 12:39] VITALS: TEMP 97
[2024-09-07] MEDS: HYDROmorphone 0.5 MG/0.5 ML SYRINGE IVP PRN (12:58)
[2024-09-07 13:43] LABS: Glucose,Whole Blood 111 mg/dL (70-110)
[2024-09-07 14:20] VITALS: BP 122/64; PULSE 75; RESP 16
== END 2024-09-07 14:39 | disposition home or self-care (01) ==
LOC: OR 09:27
PROVIDERS: ATTEND Surgery
DX: T82.49XA Other complication of vascular dialysis catheter, initial encounter (principal); I12.9 Hypertensive chronic kidney disease with stage 1 through stage 4 chronic kidney disease, or unspecified chronic kidney disease; N18.9 Chronic kidney disease, unspecified; Z99.2 Dependence on renal dialysis; E78.5 Hyperlipidemia, unspecified; J45.909 Unspecified asthma, uncomplicated; Z79.899 Other long term (current) drug therapy; Z87.891 Personal history of nicotine dependence
CPT/HCPCS: 49325; 80048; 85025; J1644; J1100; J0690; J2405; J2003; J3010; J2704; J1171; J0665